=== PATIENT | male | born 1985 | race Native Hawaiian/Other Pacific Islander ===

== ENCOUNTER 2020-04-27 07:38 | Outpatient (REF) | payer OTHER, SELFPAY | END 2020-04-27 07:39 | disposition home or self-care (01) | LOC: HO.LAB 07:38 | PROVIDERS: PCP Internal Medicine; Visit Provider Internal Medicine | DX: Z20.828 Contact with and (suspected) exposure to other viral communicable diseases (principal) | CPT/HCPCS: 36415; 87635 ==

== ENCOUNTER 2020-05-20 07:35 | Emergency (ER) | payer OTHER, SELFPAY ==
--- NOTE | 2020-05-20 07:44 | ED.BACK ---
HPI - Back Pain/Injury General Chief Complaint: Back Pain/Injury Stated Complaint: BACK PAIN Time Seen by Provider: 05/20/20 07:44 Source: patient Mode of arrival: ambulatory Limitations: no limitations History of Present Illness MD elicited complaint: back pain Pertinent past history: prior back pain Onset (ago): day(s) (1) Timing: constant Severity: moderate Similar Symptoms Previously: Yes Quality: sharp Location: lumbar spine Radiation: right upper leg Exacerbating factors: movement, walking, deep breaths and coughing/sneezing Relieving factors: none Context: other (gagged and coughed hard while brushing teeth felt a pop in his back) Associated symptoms: denies other symptoms Work related injury: No Related Data Previous Rx's Medication Instructions Recorded tramadol 50 mg tablet 50 mg PO Q6H PRN 30 Days #120 tab 05/01/20 trazodone 100 mg tablet 100 mg PO BEDTIME PRN 90 Days #90 05/01/20 tab diazepam [Valium] 5 mg PO TID PRN #14 tab 05/20/20 ibuprofen 600 mg PO Q6H PRN #30 tab 05/20/20 lidocaine 1 patch TOPICAL DAILY PRN #10 ea 05/20/20 Allergies Allergy/AdvReac Type Severity Reaction Status Date / Time No Known Allergies Allergy Verified 05/20/20 07:52 Review of Systems Review of Systems: Constitutional : No Weight loss, No Fever, No Chills, ENT/Mouth : No Hearing loss, No Ear Pain, No Nasal Congestion, No Sinus Pain, No Hoarseness, No sore throat, No Rhinorrhea, No Swallowing Difficulty Cardiovascular : No Chest Pain, No SOB Respiratory : No Cough, No Dyspnea Gastrointestinal : No Nausea, No Vomiting, No Diarrhea, No abdominal Pain, No Hematochezia, No Melena Genitourinary : No Dysuria, No Urinary Frequency, No Hematuria, No Urinary Incontinence, Musculoskeletal : positive back pain Skin : No Skin Lesions, No rash Neuro : No Weakness, No Numbness, No Paresthesias, no loss of bowel or bladder incontinence, no saddle anesthesia [facility] Past Medical History Medical History Lumbar spondylosis Primary insomnia Social History Social History (Updated 05/20/20 @ 07:54 by Lary Martines DO) Smoking Status: Current every day smoker Use of substances other than those prescribed or required for medical reasons: No Physical Exam Vital Signs: Vital Signs: Vital Signs Temp Pulse Resp BP Pulse Ox 05/20/20 07:48 98.0 F 77 17 110/65 99 Body Mass Index 29.8 Appearance: Alert. Oriented X3. No acute distress. Eyes: Pupils equal, round and reactive to light. ENT: Pharynx normal. Neck: Normal inspection. Neck supple. CVS: Normal heart rate and rhythm. Pulses normal. Respiratory: No respiratory distress. Breath sounds normal. Abdomen: Soft and nontender. Back: R sided lower lumbar ttp Skin: Skin warm and dry. Normal skin color. Normal skin turgor. Extremities: No lower extremity edema. No calf ttp Neuro: Oriented X 3. No motor deficit. No sensory deficit. MDM - Back Pain/Injury MDM Narrative Medical decision making narrative: 34 yo male with back pain no b/b incontinence, no saddle anesthesia, no IVDA, no AC therapy - hx of same in past will prescirbe NSAIDs, lidocaine patch and valium, DC to PCP Discharge Plan Discharge Clinical Impression: Lumbar radicular pain Patient Disposition: Home, Self-Care Instructions: Acute Low Back Pain (ED) Prescriptions: New diazepam [Valium] 5 mg tablet 5 mg PO TID PRN (Reason: muscle spasm) Qty: 14 RF: 0 lidocaine 4 % adhesive patch,medicated 1 patch topical DAILY PRN (Reason: pain) Qty: 10 RF: 0 ibuprofen 600 mg tablet 600 mg PO Q6H PRN (Reason: pain) Qty: 30 RF: 0 No Action trazodone 100 mg tablet 100 mg PO BEDTIME PRN (Reason: sleep) 90 Days Qty: 90 RF: 3 tramadol 50 mg tablet 50 mg PO Q6H PRN (Reason: pain) 30 Days Qty: 120 RF: 0 Referrals: Caitie Huizar MD [Primary Care Provider] - 2 days Print Language: Ukrainian
[2020-05-20 07:48] VITALS: BP 110/65; PULSE 77; RESP 17; TEMP 36.7; O2SAT 99; BMI 29.8
[2020-05-20] MEDS: Ketorolac Tromethamine 60 MG/2 ML VIAL IM (07:54)
== END 2020-05-20 08:01 | disposition home or self-care (01) ==
LOC: HO.ED 07:55
PROVIDERS: Emergency Provider Emergency Medicine; PCP Internal Medicine
DX: M54.5 Low back pain (principal); Z79.899 Other long term (current) drug therapy
CPT/HCPCS: 96372; 99283; 99284; J1885

== ENCOUNTER 2020-09-04 09:19 | Outpatient (REF) | payer OTHER, SELFPAY | END 2020-09-04 09:20 | disposition home or self-care (01) | LOC: HO.LAB 09:19 | PROVIDERS: Visit Provider Internal Medicine | DX: Z20.822 Contact with and (suspected) exposure to COVID-19 (principal) | CPT/HCPCS: 36415; C9803; U0003; U0005 ==

== ENCOUNTER 2020-09-04 15:00 | Outpatient (RCR) | payer OTHER, SELFPAY ==
--- NOTE | 2020-08-16 15:13 | MHC.PT.EP ---
[facility] [place] Office [place] Office [place] Office [address] Ana Burton [address] [phone] F: [phone] F: [phone] F: [phone] F: [phone] Physical Therapy Plan of Care Date of Evaluation: 08/16/20 Date of Surgery: na Diagnosis: Spondylosis w/o myelopathy or radiculopathy Assessment: YOSHI RETURNS TO PT FOR LBP. UPON EXAM, IMPAIRMENTS INCLUDE DECREASED TRUNK ROM, DECREASED LE STRENGTH AND ROM, ALTERED GAIT AND POSTURE AND INCREASED PAIN. FUNCTIONAL LIMITATIONS INCLUDE DECREASED ABILITY TO MAINTAIN PROLONGED POSITIONS, DECREASED TOLERANCE TO LIFTING AND BENDING, DECREASED ABILITY TO PERFORM HOMEMAKING TASKS, DECREASED ABILITY TO PARTICIPATE IN COMMUNITY ACTIVITIES AND FITNESS. OF NOTE HE HAS BEEN EVALUATED IN THIS CLINIC 4 PREVIOUS TIMES FOR SIMILAR SYMPTOMS WITH POOR ATTENDANCE HISTORY. Frequency and Duration: The patient will be seen 2 X WEEK FOR 4 WEEKS Short Term Goals: INITIATE HEP AND PROMOTE IMPROVED POSTURAL AWARENESS AND SELF MANAGEMENT OF SYMPTOMS. Penitentiary Goals: IN 4 WEEKS FULL LE STRENGTH EQUAL WILDER INDEPENDENT HEP AND SELF MANAGEMENT OF SYMPTOMS TO TOLERATE WALKING AND SITTING, EACH AT MINIMUM 30 MINS, WITHOUT PAIN GREATER THAN 2/10 Treatment Plan: Modalities to reduce pain, spasms and effusion. Manual therapy to restore motion and function. Therapeutic exercise to improve strength and flexibility. Neuromuscular re-education for posture and balance. Therapeutic activities to return to functional activities of daily living. Electronically signed by: STEPHANY HILL PT, DPT Please sign and return to therapist. Thank you for your referral.
--- NOTE | 2020-09-26 11:30 | MHC.PT.DC ---
[facility] [place] Office [place] Office [place] Office [address] Ana Burton [address] [phone] F: [phone] F: [phone] F: [phone] F: [phone] Physical Therapy Discharge Report Diagnosis: Spondylosis w/o myelopathy or radiculopathy Date of Surgery: na Date of Evaluation: 08/16/20 Date of Discharge: 09/12/20 Treatments to Date: 6 Cancellations to Date: 1 No Shows to Date: 2 Discharge Status: Visit Non-compliance Discharge Summary: Ministerio was progressing well with PT although c/o some continuing right sided discomfort and tightness, he then no showed for his last two scheduled visits and did not return our voicemail messages. He is D/Joel per department policy. Electronically signed by: Rere Tejada PT, DPT Please sign and return to therapist. Thank you for your referral.
== END 2021-04-01 08:17 | disposition home or self-care (01) ==
LOC: HO.PT 15:00
PROVIDERS: PCP Internal Medicine; Visit Provider Internal Medicine
DX: M47.816 Spondylosis without myelopathy or radiculopathy, lumbar region (principal)
CPT/HCPCS: 97110; 97140; 97161; 97530

== ENCOUNTER 2020-09-12 07:44 | Outpatient (REF) | payer OTHER, SELFPAY ==
[2020-09-12 08:52] LABS: Glucose Urine UA NEG (NEG); Leukocyte Esterase Urine NEG (NEG); Nitrite Urine NEG (NEG); PH 5.5 (5.0-8.0); Specific Gravity - Urine >= 1.030 (1.005-1.025); Urine Blood TRACE (NEG); Urine Ketones NEG (NEG); Urine Protein NEG (NEG-TRACE)
[2020-09-12 08:53] LABS: Appearance Urine CLEAR; Color Urine YELLOW
[2020-09-12 09:03] LABS: Alanine Aminotransferase 19 U/L (0-40); Albumin Level 4.6 g/dL (3.5-5.0); Alkaline Phosphatase 90 U/L (39-117); Anion Gap 14 (12-20); Aspartate Amino Transferase 21 U/L (5-37); Bilirubin Total 0.4 mg/dL (0.0-1.0); Blood Urea Nitrogen 14 mg/dL (9-16); Calcium 8.8 mg/dL (8.4-10.2); Carbon Dioxide 23 mmol/L (22-29); Chloride 105 mmol/L (96-108); Cholesterol 201 mg/dL; Estimated Glomerular Filt Rate > 60; Glucose Fasting 88 mg/dL (60-99); HDL Cholesterol 46 mg/dL; LDL Cholesterol Calculated 138 mg/dl; Potassium 4.5 mmol/L (3.3-5.1); Sodium 137 mmol/L (135-145); Total Protein 7.4 g/dL (6.5-8.0); Triglycerides 85 mg/dL
[2020-09-12 09:14] LABS: Mucus Urine TRACE /LPF; RBC Urine 0-2 /HPF (0); WBC Urine 0-2 /HPF (0-4)
[2020-09-12 10:31] LABS: HBS Num1 > 1000.00 mIU/mL (0-7.99); HBc Num1 0.07 S/CO (0.00-0.79); Hepatitis B Core Antibody Nonreactive (Nonreactive); ~Hepatitis B Surface Antibody REACTIVE (Nonreactive)
[2020-09-12 10:38] LABS: HBsAGNum1 0.25 S/CO (0.00-0.99); HIV AB/AG Nonreactive (Nonreactive); HIV Num 1 0.07 S/CO (0.00-0.99); Hepatitis B Surface Antigen Negative (Negative); ~HepC Num1 0.06 S/CO (0.00-0.79); ~Hepatitis C Antibody Nonreactive (Nonreactive)
[2020-09-13 09:41] LABS: Syphilis Screen Nonreactive (Nonreactive)
[2020-09-13 14:56] LABS: C. trachomatis RNA TMA NOT DETECTED (NOT DETECTED); N. gonorrhoeae RNA TMA NOT DETECTED (NOT DETECTED)
== END 2020-09-12 07:45 | disposition home or self-care (01) ==
LOC: HO.LAB 07:44
PROVIDERS: Visit Provider Internal Medicine
DX: R35.8 Other polyuria (principal); E78.5 Hyperlipidemia, unspecified; R30.0 Dysuria; Z11.3 Encounter for screening for infections with a predominantly sexual mode of transmission
CPT/HCPCS: 36415; 80053; 80061; 81001; 81003; 86704; 86706; 86780; 86803; 87340; 87389; 87491; 87591

== ENCOUNTER 2020-09-13 07:30 | Emergency (ER) | payer OTHER, SELFPAY ==
--- NOTE | 2020-09-13 07:33 | ED.URI ---
HPI - URI/Sore Throat General Chief Complaint: General Medical Stated Complaint: COUGH Time Seen by Provider: 09/13/20 07:32 Source: patient Mode of arrival: ambulatory Limitations: no limitations History of Present Illness HPI Narrative: 35 yo male cough and sore throat x 3 days able to swallow and tolerate secretions MD elicited complaint: cough and sore throat Pertinent past history: asthma Onset (ago): day(s) (3) Consistency: constant Severity: moderate Description of mucous: clear Able to tolerate fluids by mouth: Yes Exacerbating factors: swallowing Relieving factors: nothing Associated symptoms: rhinorrhea, sore throat and cough Treatments prior to arrival: none Related Data Previous Rx's Medication Instructions Recorded lidocaine 1 patch TOPICAL DAILY PRN #10 ea 05/20/20 trazodone 100 mg tablet 100 mg PO BEDTIME PRN 90 Days #90 06/05/20 tab albuterol sulfate 90 mcg/actuation 1 inh INHALATION QID PRN 30 Days 08/07/20 aerosol inhaler #6.7 g ibuprofen 600 mg tablet 600 mg PO Q6H PRN #30 tab 08/07/20 tramadol 50 mg tablet 50 mg PO Q6H PRN 30 Days #112 tab 08/07/20 fluticasone propionate 50 1 spray INTRANASAL DAILY 30 Days 09/03/20 mcg/actuation nasal #16 g spray,suspension azithromycin See Rx Instructions .ROUTE 09/13/20 .COMPLEX #6 tab Allergies Allergy/AdvReac Type Severity Reaction Status Date / Time No Known Allergies Allergy Verified 09/03/20 15:01 Review of Systems Review of Systems: Constitutional : No Fever, No Chills ENT/Mouth : pos swallowing difficulty, no change in voice, no dental pain, no jaw pain, no facial swelling Eyes: No Eye Pain, No Swelling Cardiovascular : No Chest Pain, No SOB Respiratory : pos Cough, No Sputum Gastrointestinal : No Nausea, No Vomiting, No Diarrhea Genitourinary : No Dysuria Musculoskeletal : No Myalgias Skin : No rash Neuro : No Weakness, No Numbness, No Headache PMFSH Past Medical History Medical History Allergic rhinitis Lumbar spondylosis Polyuria Primary insomnia Screening for STD (sexually transmitted disease) Surgical History No pertinent past surgical history Family History Family History Father No problems noted. Mother Hypertension Brother No problems noted. Maternal Grandmother Hypertension Diabetes Maternal Grandfather CVD (cardiovascular disease) Paternal Grandmother No problems noted. Paternal Grandfather No problems noted. Social History Social History Smoking Status: Current every day smoker Tobacco Type: Cigarette Cigarettes Per Day: 8 Physical Exam Vital Signs: Vital Signs: Last Vital Signs Temp 98.5 F 09/13/20 07:44 Pulse 83 09/13/20 07:44 Resp 16 09/13/20 07:44 BP 116/67 09/13/20 07:44 Pulse Ox 98 09/13/20 07:44 Body Mass Index 30.7 Appearance: Alert. Oriented X3. No acute distress. Eyes: Pupils equal, round and reactive to light. ENT: Pharynx moderate swelling, no mass, uvula midline normal voice tolerating secretions no exudates Neck: Normal inspection. Neck supple. CVS: Normal heart rate and rhythm. Pulses normal. Respiratory: No respiratory distress. Breath sounds normal. Abdomen: Soft and nontender. Skin: Skin warm and dry. Normal skin color. Normal skin turgor. Extremities: No lower extremity edema. No calf ttp Neuro: Oriented X 3. No motor deficit. No sensory deficit. MDM - URI/Sore Throat MDM Narrative Medical decision making narrative: 35 yo male with pharyngitis - no signs of mass or [facility], able to swallow and tolerate secretions - will test for COVID and strep given clinical appearance will start on zpak - will call josiah with results Discharge Plan Discharge Clinical Impression: Acute viral syndrome Pharyngitis Qualifiers: Pharyngitis/tonsillitis etiology: other specified organisms Qualified Code(s): J02.8 - Acute pharyngitis due to other specified organisms Patient Disposition: Home, Self-Care Instructions: Pharyngitis (ED) Additional Instructions: return to ED for any worsening symptoms or concerns WE WILL CALL YOU WITH YOUR RESULTS IF YOU ARE COVID POSITIVE Prescriptions: New azithromycin 500 mg tablet See Rx Instructions .ROUTE .COMPLEX Qty: 6 RF: 0 No Action trazodone 100 mg tablet 100 mg PO BEDTIME PRN (Reason: sleep) 90 Days Qty: 90 RF: 3 albuterol sulfate [ProAir HFA] 90 mcg/actuation HFA aerosol inhaler 1 inh inhalation QID PRN (Reason: bronchospasm) 30 Days Qty: 6.7 RF: 6 ibuprofen 600 mg tablet 600 mg PO Q6H PRN (Reason: pain) Qty: 30 RF: 2 tramadol 50 mg tablet 50 mg PO Q6H PRN (Reason: pain) 30 Days Qty: 112 RF: 0 lidocaine 4 % adhesive patch,medicated 1 patch topical DAILY PRN (Reason: pain) Qty: 10 RF: 0 fluticasone propionate [Allergy Relief (fluticasone)] 50 mcg/actuation spray,suspension 1 spray intranasal DAILY 30 Days Qty: 16 RF: 6
[2020-09-13 07:44] VITALS: BP 116/67; PULSE 83; RESP 16; TEMP 36.9; O2SAT 98; BMI 30.7
[2020-09-13 08:35] LABS: Influenza A PCR NEGATIVE (Negative); Influenza B PCR NEGATIVE (Negative); Resp Syncy Virus RNA Qual PCR NEGATIVE (Negative); SARS COV2 PCR INHOUSE NEGATIVE (Negative)
== END 2020-09-13 07:55 | disposition home or self-care (01) ==
LOC: HO.ED 07:51
PROVIDERS: Emergency Provider Emergency Medicine; PCP Internal Medicine
DX: J02.8 Acute pharyngitis due to other specified organisms (principal); B34.9 Viral infection, unspecified; R05 Cough; F17.210 Nicotine dependence, cigarettes, uncomplicated; Z71.6 Tobacco abuse counseling; Z79.899 Other long term (current) drug therapy; Z20.822 Contact with and (suspected) exposure to COVID-19
CPT/HCPCS: 0241U; 36415; 87071; 87880; 99283

== ENCOUNTER 2020-09-18 03:49 | Emergency (ER) | payer OTHER, SELFPAY ==
[2020-09-18 04:02] VITALS: BP 134/76; PULSE 95; RESP 18; TEMP 36.3; O2SAT 100; BMI 30.9
--- NOTE | 2020-09-18 04:09 | ED.MALEGU ---
HPI - Male Genitourinary General Chief complaint: Urogenital-Male Stated complaint: Testicular pain Time Seen by Provider: 09/18/20 04:09 Source: patient Mode of arrival: ambulatory Limitations: no limitations History of Present Illness HPI Narrative: Patient was seen here on 09/12 for sore throat that time a urine GC chlamydia was negative. Patient treated with Zithromax now comes here for 2 days of pain in the right testicle without significant swelling no penile discharge no trauma no significant increase in pain on standing MD Complaint: testicle pain Related Data Previous Rx's Medication Instructions Recorded lidocaine 1 patch TOPICAL DAILY PRN #10 ea 05/20/20 trazodone 100 mg tablet 100 mg PO BEDTIME PRN 90 Days #90 06/05/20 tab albuterol sulfate 90 mcg/actuation 1 inh INHALATION QID PRN 30 Days 08/07/20 aerosol inhaler #6.7 g ibuprofen 600 mg tablet 600 mg PO Q6H PRN #30 tab 08/07/20 tramadol 50 mg tablet 50 mg PO Q6H PRN 30 Days #112 tab 08/07/20 fluticasone propionate 50 1 spray INTRANASAL DAILY 30 Days 09/03/20 mcg/actuation nasal #16 g spray,suspension azithromycin See Rx Instructions .ROUTE 09/13/20 .COMPLEX #6 tab doxycycline hyclate 100 mg PO BID #20 cap 09/18/20 Allergies Allergy/AdvReac Type Severity Reaction Status Date / Time No Known Allergies Allergy Verified 09/03/20 15:01 Review of Systems Review of Systems: Yes all other systems are reviewed and are negative [facility] Past Medical History Medical History Allergic rhinitis Lumbar spondylosis Polyuria Primary insomnia Screening for STD (sexually transmitted disease) Surgical History No pertinent past surgical history Family History Family History Father No problems noted. Mother Hypertension Brother No problems noted. Maternal Grandmother Hypertension Diabetes Maternal Grandfather CVD (cardiovascular disease) Paternal Grandmother No problems noted. Paternal Grandfather No problems noted. Social History Social History Smoking Status: Current every day smoker Tobacco Type: Cigarette Cigarettes Per Day: 8 Use of substances other than those prescribed or required for medical reasons: Yes Substance Use Type: Marijuana Advance Directives: No Physical Exam Vital Signs: Vital Signs: Last Vital Signs Temp 97.4 F 09/18/20 04:02 Pulse 95 09/18/20 04:02 Resp 18 09/18/20 04:02 BP 134/76 09/18/20 04:02 Pulse Ox 100 09/18/20 04:02 Body Mass Index 30.9 Const: General: no acute distress Resp: Effort & Inspection: normal respiratory effort Auscultation: clear to auscultation bilaterally Cardio: Rate: regular rate Rhythm: regular rhythm Heart sounds: S1 normal heart sound present and S2 normal heart sound present GI: Inspection: Yes normal to inspection Palpation (GI): Soft to palpation and nontender Auscultation: normal bowel sounds : General: Yes no CVA tenderness Male General Exam: Yes normal external exam Penis: normal penis Meatus: meatus normal Scrotum: scrotum normal Testes: no epididymal induration, no epidiymal masses and epididymal tenderness on the right Back/Spine/Pelvis: Back: no CVA tenderness MDM - Male Genitourinary MDM Narrative Medical decision making narrative: Patient with mild right epididymis tenderness without significant swelling DC clearly was negative on 09/12 will give him doxycycline advised took continue to watch report to the ER if gets worse Discharge Plan Discharge Clinical Impression: Epididymitis Patient Disposition: Home, Self-Care Instructions: Epididymitis (ED) Additional Instructions: Take antibiotic as prescribed Your possibly have mild epididymitis Report to the ER/PCP if pain or swelling gets worse Prescriptions: New doxycycline hyclate 100 mg capsule 100 mg PO BID Qty: 20 RF: 0 No Action trazodone 100 mg tablet 100 mg PO BEDTIME PRN (Reason: sleep) 90 Days Qty: 90 RF: 3 albuterol sulfate [ProAir HFA] 90 mcg/actuation HFA aerosol inhaler 1 inh inhalation QID PRN (Reason: bronchospasm) 30 Days Qty: 6.7 RF: 6 ibuprofen 600 mg tablet 600 mg PO Q6H PRN (Reason: pain) Qty: 30 RF: 2 tramadol 50 mg tablet 50 mg PO Q6H PRN (Reason: pain) 30 Days Qty: 112 RF: 0 lidocaine 4 % adhesive patch,medicated 1 patch topical DAILY PRN (Reason: pain) Qty: 10 RF: 0 azithromycin 500 mg tablet See Rx Instructions .ROUTE .COMPLEX Qty: 6 RF: 0 fluticasone propionate [Allergy Relief (fluticasone)] 50 mcg/actuation spray,suspension 1 spray intranasal DAILY 30 Days Qty: 16 RF: 6 Interventions: ED Discharge Assessment Last Done: 09/18/20 04:15 Print Language: Turkish
== END 2020-09-18 04:34 | disposition home or self-care (01) ==
PROVIDERS: Emergency Provider Internal Medicine; PCP Internal Medicine
DX: N45.1 Epididymitis (principal); F17.210 Nicotine dependence, cigarettes, uncomplicated; F12.90 Cannabis use, unspecified, uncomplicated
CPT/HCPCS: 99283; 99284

== ENCOUNTER 2020-09-30 17:15 | Outpatient (REF) | payer OTHER, SELFPAY ==
[2020-10-01 13:08] LABS: Amphetamine Screen Urine Not Detected (Not Detect); Barbiturates, Urine Not Detected (Not Detect); Benzodiazepines Screen Urine Not Detected (Not Detect); Cannabinoid Screen Urine POSITIVE (Not Detect); Cocaine Screen Urine POSITIVE (Not Detect); Opiate Screen Urine Not Detected (Not Detect); Phencyclidine Screen Urine Not Detected (Not Detect)
[2020-10-03 07:17] LABS: Codeine, Ur NEGATIVE ng/mL (<50); Hydrocodone, Ur NEGATIVE ng/mL (<50); Hydromorphone, Ur NEGATIVE ng/mL (<50); Morphine, Ur NEGATIVE ng/mL (<50); Norhydrocodone, Ur NEGATIVE ng/mL (<50); Noroxycodone, Ur NEGATIVE ng/mL (<50); Oxycodone, Ur NEGATIVE ng/mL (<50); Oxymorphone, Ur NEGATIVE ng/mL (<50)
[2020-10-03 17:37] LABS: Desmethyltramadol, Ur 2669 ng/mL (<100); Tramadol, Ur >10000 ng/mL (<100)
== END 2020-09-30 17:16 | disposition home or self-care (01) ==
LOC: HO.LNP 17:15
PROVIDERS: Visit Provider Internal Medicine
DX: M47.816 Spondylosis without myelopathy or radiculopathy, lumbar region (principal); Z51.81 Encounter for therapeutic drug level monitoring; Z11.3 Encounter for screening for infections with a predominantly sexual mode of transmission
CPT/HCPCS: 80307; 80364; 80365; 80373

== ENCOUNTER 2020-10-01 11:59 | Outpatient (REF) | payer OTHER, SELFPAY | END 2020-10-01 12:00 | disposition home or self-care (01) | LOC: HO.LNP 11:59 | PROVIDERS: Visit Provider Internal Medicine | DX: Z13.89 Encounter for screening for other disorder (principal) ==

== ENCOUNTER 2020-10-01 12:03 | Outpatient (REF) | payer OTHER, SELFPAY | END 2020-10-01 12:04 | disposition home or self-care (01) | LOC: HO.LNP 12:03 | PROVIDERS: Visit Provider Internal Medicine | DX: Z13.89 Encounter for screening for other disorder (principal) ==

== ENCOUNTER 2020-10-08 16:54 | Emergency (ER) | payer OTHER, SELFPAY ==
[2020-10-08 16:56] VITALS: BP 125/75; PULSE 95; RESP 18; TEMP 37.1; O2SAT 100; BMI 31.6
[2020-10-08] MEDS: Erythromycin Base 0.5% Oph Oin 1 GM TUBE 1 CM EYE-LEFT (19:09)
--- NOTE | 2020-10-08 19:13 | ED.EYEPROB ---
HPI - Eye Problem General Chief complaint: Eye Problems Stated complaint: eye problem Time Seen by Provider: 10/08/20 18:51 Source: patient Mode of arrival: ambulatory Limitations: no limitations History of Present Illness HPI Narrative: 35 y/o male presenting with non-traumatic left eye pain and redness for the last 2 days. He has pain in the upper eye lid with some swelling. He has been using eye lubricant without any improvement. He also has been icing his eye without improvement. He denies vision changes. He denies foreign body sensation. He does not wear contacts or glasses. chief complaint: eye pain Onset (ago): day(s) (2) Onset description: gradual Duration: constant Location: left eye Eye Symptoms: redness and pain Place: home Mechanism: none Severity: moderate If Pain, Quality: aching Associated symptoms: none Treatments Prior to Arrival: none Related Data Previous Rx's Medication Instructions Recorded lidocaine 1 patch TOPICAL DAILY PRN #10 ea 05/20/20 trazodone 100 mg tablet 100 mg PO BEDTIME PRN 90 Days #90 06/05/20 tab fluticasone propionate 50 1 spray INTRANASAL DAILY 30 Days 09/03/20 mcg/actuation nasal #16 g spray,suspension albuterol sulfate 90 mcg/actuation 1 inh INHALATION QID PRN 30 Days 09/30/20 aerosol inhaler #6.7 g ibuprofen 600 mg tablet 600 mg PO Q6H PRN #30 tab 09/30/20 tramadol 50 mg tablet 50 mg PO Q6H PRN 30 Days #112 tab 09/30/20 erythromycin 0.5 inch OPHTHALMIC (EYE) TID #3.5 10/08/20 g Allergies Allergy/AdvReac Type Severity Reaction Status Date / Time No Known Allergies Allergy Verified 10/08/20 16:56 Review of Systems Review of Systems: Constitutional: No Fever, No Chills ENT/Mouth: No sore throat, No Rhinorrhea, No Swallowing Difficulty Eyes: + Eye Pain, + Swelling, + Redness Cardiovascular: No Chest Pain, No SOB Respiratory: No Cough, No Sputum Skin: No Skin Lesions, No rash Neuro: No Headache PMFSH Past Medical History Attestation statement: The following information was validated with the patient. Medical History Allergic rhinitis Lumbar spondylosis Polyuria Primary insomnia Screening for STD (sexually transmitted disease) Surgical History No pertinent past surgical history Family History Family History Father No problems noted. Mother Hypertension Brother No problems noted. Maternal Grandmother Hypertension Diabetes Maternal Grandfather CVD (cardiovascular disease) Paternal Grandmother No problems noted. Paternal Grandfather No problems noted. Social History Social History (Updated 09/30/20 @ 17:01 by Caitie Saldivar MD) Smoking Status: Current every day smoker Tobacco Type: Cigarette Cigarettes Per Day: 8 Substance Use Type: Marijuana Advance Directives: No Advance Directives Information Provided: Yes Physical Exam Vital Signs: Vital Signs: Last Vital Signs Temp 98.7 F 10/08/20 16:56 Pulse 95 10/08/20 16:56 Resp 18 10/08/20 16:56 BP 125/75 10/08/20 16:56 Pulse Ox 100 10/08/20 16:56 Body Mass Index 31.6 Appearance: Alert. Oriented X3. No acute distress. HEENT: left eye with mild scleral injection superiorly. EOMI, PERRLA, upper lid everted with small pustule noted interiorly. VA noted. no discharge. CVS: Normal heart rate and rhythm. Pulses normal. Respiratory: No respiratory distress. Skin: Skin warm and dry. Normal skin color. Normal skin turgor. No rashes. Extremities: atraumatic, no LE edema Neuro: Oriented X 3. Non-focal. CN II-XII grossly intact. Course Course Course Narrative: 35 yo male presenting with left eye pain, swelling - exam consistent with internal hordeolum. Area was superficially deroofed with a sterile needle. Patient tolerated well. Counseled on management with warm compresses. Topical abx given here and sent to pharmacy. Stable for d/c. Critical Care Time Critical Care Time Critical Care Time: No Discharge Plan Discharge Clinical Impression: Hordeolum Qualifiers: Hordeolum type: internum Laterality: left Eyelid: upper Qualified Code(s): H00.024 - Hordeolum internum left upper eyelid Patient Disposition: Home, Self-Care Instructions: Stye (ED) Additional Instructions: Use warm compresses to your eye several times per day until all of you symptoms are resolved. Use the antibiotic ointment 4 times per day. Follow up with your doctor as needed. If you have worsening symptoms come back to the ER for further evaluation. Prescriptions: New erythromycin 5 mg/gram (0.5 %) ointment 0.5 inch ophthalmic (eye) TID Qty: 3.5 RF: 0 No Action trazodone 100 mg tablet 100 mg PO BEDTIME PRN (Reason: sleep) 90 Days Qty: 90 RF: 3 tramadol 50 mg tablet 50 mg PO Q6H PRN (Reason: pain) 30 Days Qty: 112 RF: 0 albuterol sulfate [ProAir HFA] 90 mcg/actuation HFA aerosol inhaler 1 inh inhalation QID PRN (Reason: bronchospasm) 30 Days Qty: 6.7 RF: 6 ibuprofen 600 mg tablet 600 mg PO Q6H PRN (Reason: pain) Qty: 30 RF: 2 lidocaine 4 % adhesive patch,medicated 1 patch topical DAILY PRN (Reason: pain) Qty: 10 RF: 0 fluticasone propionate [Allergy Relief (fluticasone)] 50 mcg/actuation spray,suspension 1 spray intranasal DAILY 30 Days Qty: 16 RF: 6 Interventions: ED Discharge Assessment Last Done: 10/08/20 19:40 Discharge Date/Time: 10/08/20 19:40
== END 2020-10-08 19:40 | disposition home or self-care (01) ==
PROVIDERS: Emergency Provider Emergency Medicine; PCP Internal Medicine
DX: H00.024 Hordeolum internum left upper eyelid (principal); F17.210 Nicotine dependence, cigarettes, uncomplicated; F12.90 Cannabis use, unspecified, uncomplicated
CPT/HCPCS: 99283; 99284

== ENCOUNTER 2020-10-12 06:02 | Emergency (ER) | payer OTHER, SELFPAY ==
--- NOTE | ~2020-10-12 | CT_ITS ---
EXAMINATION: CT HEAD WITHOUT CONTRAST CLINICAL INFORMATION: Headache. Rule out SAH COMPARISON: August 10, 2016 TECHNIQUE: Contiguous axial imaging was performed from the skull base to vertex without intravenous administration of contrast. This CT examination was performed using dose optimization techniques as appropriate, variously including the following: *Automated exposure control *Adjustment of mA and/or kV according to patient size (this includes techniques or standardized protocols for targeted exams where dose is matched to indication/reason for exam; i.e. extremities or head) *Use of iterative reconstruction technique DLP: 722 mGy-cm FINDINGS: There is no evidence of acute intracranial hemorrhage or territorial infarction. No abnormal mass effect or midline shift is seen. Acosta to white matter differentiation is well preserved. No extra-axial fluid collections are identified. The ventricles are normal in size. There is no abnormal attenuation within the brain parenchyma. The osseous structures and soft tissues are normal. The mastoid air cells and visualized portions of the paranasal sinuses are well aerated. There is some mucosal thickening noted within the right frontal sinus and ethmoid sinuses. No air-fluid levels. CT/CT head/brain wo con IMPRESSION: No acute intracranial pathology.
[2020-10-12 06:20] VITALS: BP 129/75; PULSE 80; RESP 20; TEMP 37.2; O2SAT 100; BMI 31.6
--- NOTE | 2020-10-12 06:57 | ED.HA ---
HPI - Headache General Chief Complaint: Headache Stated Complaint: Headache Time Seen by Provider: 10/12/20 06:56 Source: patient and educational sign language interpreter Mode of arrival: ambulatory Limitations: no limitations History of Present Illness HPI Narrative: [age] year male presented with headache while having sexual intercourse with his , patient stated while he is about to have orgasm and ejaculation started to have a sudden onset of left-sided headache, no nausea, no vomiting, no blurry vision or photophobia or neck stiffness, patient reported improvement of the headache after the ejaculation, patient had another sexual intercourse with his 2 hours later when the symptoms severe care when having intercourse, patient been in the ED headache has improved, still no photophobia, no neck stiffness. Patient declined any family history of subarachnoid hemorrhage or brain tumor, or sudden at young age in the family. Related Data Previous Rx's Medication Instructions Recorded lidocaine 1 patch TOPICAL DAILY PRN #10 ea 05/20/20 trazodone 100 mg tablet 100 mg PO BEDTIME PRN 90 Days #90 06/05/20 tab fluticasone propionate 50 1 spray INTRANASAL DAILY 30 Days 09/03/20 mcg/actuation nasal #16 g spray,suspension albuterol sulfate 90 mcg/actuation 1 inh INHALATION QID PRN 30 Days 09/30/20 aerosol inhaler #6.7 g ibuprofen 600 mg tablet 600 mg PO Q6H PRN #30 tab 09/30/20 tramadol 50 mg tablet 50 mg PO Q6H PRN 30 Days #112 tab 09/30/20 erythromycin 0.5 inch OPHTHALMIC (EYE) TID #3.5 10/08/20 g Allergies Allergy/AdvReac Type Severity Reaction Status Date / Time No Known Allergies Allergy Verified 10/08/20 16:56 Review of Systems Review of Systems: All other systems are reviewed and are negative Constitutional: Reports as per HPI and Reports no additional constitutional complaints Eyes: Reports as per HPI and Reports no additional eye complaints Reports system reviewed and no additional complaints, except as documented Cardiovascular: Reports as per HPI and Reports no additional cardiovascular complaints Respiratory: Reports as per HPI and Reports no additional respiratory complaints Gastrointestinal: Reports as per HPI and Reports no additional gastrointestinal complaints Genitourinary: Reports no additional female genitourinary complaints Musculoskeletal: Reports no additional musculoskeletal complaints Skin/Breast: Reports system reviewed and no additional complaints, except as docu Psychiatric: Reports no additional psychiatric complaints Endocrine: Reports no additional endocrine complaints Hematologic/Lymphatic: Reports no additional hematologic/lymphatic complaints Allergic/Immunologic: Reports no additional allergic/immunologic complaints Reports system reviewed and no additional complaints, except as documented and Reports Abnormal speech present [facility] Past Medical History Medical History Allergic rhinitis Lumbar spondylosis Polyuria Primary insomnia Screening for STD (sexually transmitted disease) Surgical History No pertinent past surgical history Family History Family History Father No problems noted. Mother Hypertension Brother No problems noted. Maternal Grandmother Hypertension Diabetes Maternal Grandfather CVD (cardiovascular disease) Paternal Grandmother No problems noted. Paternal Grandfather No problems noted. Social History Social History Smoking Status: Unknown if ever smoked Tobacco Type: Cigarette Cigarettes Per Day: 8 Substance Use Type: Marijuana Advance Directives: No Advance Directives Information Provided: No Physical Exam Vital Signs: Vital Signs: Last Vital Signs Temp 98.9 F 10/12/20 06:20 Pulse 76 10/12/20 08:41 Resp 16 10/12/20 08:41 BP 129/75 10/12/20 06:20 Pulse Ox 99 10/12/20 08:41 Body Mass Index 31.6 Vital signs have been reviewed as appeared to be correct. Blood pressure normal. Heart rate normal. Respiration rate normal. Temperature normal. Oxygen saturation normal. Appearance: Alert. Oriented X3. No acute distress. Head: Normal external exam. Normocephalic. Atraumatic. No Garcia signs noted. No raccoon eyes noted Eyes: PERRLA. EOMI. Conjunctiva and sclera normal. Eyelids normal. ENT: TM's Normal. Pharynx normal. Uvula midline. Moist mucous membranes. No trismus noted. No drooling noted. No muffled voice noted. Neck: Normal inspection. Neck supple. FROM. No adenopathy. Thyroid Normal. No meningeal signs. No neck mass noted. CVS: Normal heart rate and rhythm. Heart sound normal. No murmurs noted. Pulses normal throughout. Respiratory: No respiratory distress. Painless inspiration. Breath sounds normal. No wheezes/rales/rhonchi noted. Chest nontender. No accessory muscle usage noted or decreased air movement noted. Abdomen: Soft and nontender. Bowel sounds normal in all 4 quadrants. No distention noted. No organomegaly noted. No visible injury noted. Back: No CVA tenderness. Full range of motion noted. Skin: Skin warm and dry. Normal skin color. Normal skin turgor. No rashes/lesions/lacerations noted. Extremities: No lower extremity edema. Extremities exhibit normal range of motion. Extremities nontender. Neuro: Oriented X 3. No motor deficit. No sensory deficit. Reflexes normal. Course Course Course Narrative: Assessment and plan. 35-year-old male came in for evaluation of headache after having multiple sexual intercourse and orgasms, headache is better in its own, patient just require some Tylenol for a mild headache, head CT/neuro exam/history not strongly suggestive for subarachnoid hemorrhage specially there is no neck stiffness, there is no photophobia, there is no other meningeal his signs. MDM - Headache Imaging Data CT scan - head: Radiologist's impression: There is no evidence of acute intracranial hemorrhage or territorial infarction. No abnormal mass effect or midline shift is seen. Acosta to white matter differentiation is well preserved. No extra-axial fluid collections are identified. The ventricles are normal in size. There is no abnormal attenuation within the brain parenchyma. The osseous structures and soft tissues are normal. The mastoid air cells and visualized portions of the paranasal sinuses are well aerated. There is some mucosal thickening noted within the right frontal sinus and ethmoid sinuses. No air-fluid levels. Discharge Plan Discharge Clinical Impression: Headache Qualifiers: Headache type: tension-type Headache chronicity pattern: acute headache Intractability: not intractable Qualified Code(s): G44.209 - Tension-type headache, unspecified, not intractable Patient Disposition: Home, Self-Care Instructions: Acute Headache (ED) Additional Instructions: Avoid strenuous activity for the next 2 days. Prescriptions: No Action trazodone 100 mg tablet 100 mg PO BEDTIME PRN (Reason: sleep) 90 Days Qty: 90 RF: 3 tramadol 50 mg tablet 50 mg PO Q6H PRN (Reason: pain) 30 Days Qty: 112 RF: 0 albuterol sulfate [ProAir HFA] 90 mcg/actuation HFA aerosol inhaler 1 inh inhalation QID PRN (Reason: bronchospasm) 30 Days Qty: 6.7 RF: 6 ibuprofen 600 mg tablet 600 mg PO Q6H PRN (Reason: pain) Qty: 30 RF: 2 erythromycin 5 mg/gram (0.5 %) ointment 0.5 inch ophthalmic (eye) TID Qty: 3.5 RF: 0 lidocaine 4 % adhesive patch,medicated 1 patch topical DAILY PRN (Reason: pain) Qty: 10 RF: 0 fluticasone propionate [Allergy Relief (fluticasone)] 50 mcg/actuation spray,suspension 1 spray intranasal DAILY 30 Days Qty: 16 RF: 6 Referrals: Caitie Huizar MD [Primary Care Provider] - 2 days
[2020-10-12] MEDS: Acetaminophen 325 MG TABLET 650 MG PO (08:40)
[2020-10-12 08:41] VITALS: PULSE 76; RESP 16; O2SAT 99
== END 2020-10-12 09:01 | disposition home or self-care (01) ==
PROVIDERS: Emergency Provider Emergency Medicine; PCP Internal Medicine
DX: G44.209 Tension-type headache, unspecified, not intractable (principal); F17.210 Nicotine dependence, cigarettes, uncomplicated; F12.90 Cannabis use, unspecified, uncomplicated
CPT/HCPCS: 70450; 99284

== ENCOUNTER 2021-01-22 12:11 | Emergency (ER) | payer OTHER, SELFPAY ==
[2021-01-22 12:36] VITALS: BP 115/62; PULSE 85; RESP 16; TEMP 37.2; O2SAT 97; BMI 30.7
[2021-01-22 13:10] LABS: Appearance Urine CLEAR; Color Urine YELLOW; Glucose Urine UA NEG (NEG); Leukocyte Esterase Urine NEG (NEG); Nitrite Urine NEG (NEG); Specific Gravity - Urine >= 1.030 (1.005-1.025); Urine Blood NEG (NEG); Urine Ketones NEG (NEG); Urine Protein NEG (NEG-TRACE)
[2021-01-22] MEDS: cefTRIAXone sodium 500 MG, Lidocaine HCl 1 % MPF 1 ML IM (13:42)
--- NOTE | 2021-01-22 14:19 | ED_ITS ---
HPI - Male Genitourinary General Chief complaint: Urogenital-Male Stated complaint: ?std Time Seen by Provider: 01/22/21 12:58 Source: patient Mode of arrival: ambulatory History of Present Illness HPI Narrative: 35-year-old male with past medical history allergic rhinitis, insomnia, presenting to the ED complaining gonorrhea exposure from girlfriend. Admits to some red bumps noted to genital is a few days ago, not at present and dysuria. denies fever, chills, abdominal pain, nausea /vomiting, penile discharge, hematuria, flank pain, scrotal pain /swelling Related Data Previous Rx's Medication Instructions Recorded lidocaine 1 patch TOPICAL DAILY PRN #10 ea 05/20/20 trazodone 100 mg tablet 100 mg PO BEDTIME PRN 90 Days #90 06/05/20 tab fluticasone propionate 50 1 spray INTRANASAL DAILY 30 Days 09/03/20 mcg/actuation nasal #16 g spray,suspension albuterol sulfate 90 mcg/actuation 1 inh INHALATION QID PRN 30 Days 09/30/20 aerosol inhaler #6.7 g ibuprofen 600 mg tablet 600 mg PO Q6H PRN #30 tab 09/30/20 tramadol 50 mg tablet 50 mg PO Q6H PRN 30 Days #112 tab 09/30/20 erythromycin 0.5 inch OPHTHALMIC (EYE) TID #3.5 10/08/20 g doxycycline hyclate 100 mg PO BID 7 Days #14 tab 01/22/21 Allergies Allergy/AdvReac Type Severity Reaction Status Date / Time No Known Allergies Allergy Verified 10/08/20 16:56 Review of Systems Review of Systems: Constitutional: No Fever, No Chills Gastrointestinal: No Nausea, No Vomiting, No Abdominal pain Genitourinary: +Dysuria, No Hematuria, No Flank Pain, +genital bumps Musculoskeletal: No joint pain Skin: No Skin Lesions, No rash Neuro: No Weakness Yes all other systems are reviewed and are negative [facility] Past Medical History Attestation statement: The following information was validated with the patient. Medical History Allergic rhinitis Lumbar spondylosis Polyuria Primary insomnia Screening for STD (sexually transmitted disease) Surgical History No pertinent past surgical history Family History Family History Father No problems noted. Mother Hypertension Brother No problems noted. Maternal Grandmother Hypertension Diabetes Maternal Grandfather CVD (cardiovascular disease) Paternal Grandmother No problems noted. Paternal Grandfather No problems noted. Social History Social History Cigarettes Per Day: 8 Substance Use Type: Marijuana Advance Directives: Yes Advance Directives Information Provided: Yes Advance Directives on File: No Physical Exam Vital Signs: Vital Signs: Last Vital Signs Temp 99.0 F 01/22/21 12:36 Pulse 85 01/22/21 12:36 Resp 16 01/22/21 12:36 BP 115/62 01/22/21 12:36 Pulse Ox 97 01/22/21 12:36 Body Mass Index 30.7 Const: General: cooperative and healthy appearing Orientation/consciousness: patient oriented x3 Limitations: no limitations HENMT: Head: Yes normal to inspection Ears: hearing grossly normal bilaterally General nose exam: Normal external nose present Face and sinus: Yes normal facial exam Eyes: General: appearance normal, both eyes and all related structures EOM: EOMs intact bilaterally Neck: Neck: Yes normal visual inspection Resp: Effort & Inspection: normal respiratory effort Cardio: Rate: regular rate GI: Inspection: Yes normal to inspection Palpation (GI): Soft to palpation, nontender, no guarding and not rigid : General: Yes no CVA tenderness Male General Exam: No Genital lesions present Penis: normal penis, no papules, no pustules, no swelling and No Genital lesions present Meatus: meatus normal and No Blood at meatus present Scrotum: scrotum normal Testes: Testes normal Back/Spine/Pelvis: Back: no CVA tenderness Skin: Rashes: no rashes Wounds: no wounds Neuro: General: patient oriented x3 Gait exam (Neuro): Normal gait present Extrem: General: Yes normal to inspection MDM - Male Genitourinary MDM Narrative Medical decision making narrative: 35-year-old male with past medical history allergic rhinitis, insomnia, presenting to the ED complaining gonorrhea exposure from girlfriend. on exam VS, NAD/ well-appearing, physical exam as well. No appreciable palm/lesions or discharge on exam. Patient will be tested and treated for GC / chlamydia. Given IM Ceftriaxone and p.o. Doxycycline Lab Data Labs: Lab Results 01/22/21 Range/Units 12:59 Urine Color YELLOW Urine Appearance CLEAR Urine pH 6.0 (5.0-8.0) Ur Specific [place] >= 1.030 H (1.005-1.025) Urine Protein NEG (NEG-TRACE) MG/DL Urine Glucose (UA) NEG (NEG) MG/DL Urine Ketones NEG (NEG) MG/DL Urine Blood NEG (NEG) Urine Nitrite NEG (NEG) Ur Leukocyte Esterase NEG (NEG) Discharge Plan Discharge Clinical Impression: STI (sexually transmitted infection) Patient Disposition: Home, Self-Care Instructions: Sexually Transmitted Diseases (ED) Additional Instructions: you were tested and treated for gonorrhea and chlamydia today in the ED. You will be contacted with positive results in the next 48 hours. You should refrain from any sexual contact until you know the results of her cultures, and for 2 weeks after treatment is completed. Consider getting retested in the next 2-3 weeks to make sure your treatment has worked. doxycycline as an antibiotic, take as prescribed. please go to [facility] for further sexually transmitted infection testing. please inform her partner so they can get tested and treated as well. If her symptoms persist or worsen you fever or chills, abdominal pain, nausea vomiting please return to the ED le hicieron pruebas y le trataron para gonorrea y clamidia hoy en el servicio de urgencias. Ser? contactado con resultados positivos en las pr?ximas 48 horas. Debe abstenerse de cualquier contacto sexual hasta que conozca los resultados de cass cultivos y rebeca 2 semanas despu?s de completar el tratamiento. Considere volver a hacerse la prueba en las pr?ximas 2-3 semanas para asegurarse de que navarro tratamiento haya funcionado. doxiciclina alejandra antibi?john, t?cope seg?n lo prescrito. por favor vaya a [facility] para m?s pruebas de infecciones de transmisi?n sexual. por favor informe a navarro [place] para que tambi?n puedan hacerse la prueba y recibir tratamiento. Si cass s?ntomas persisten o empeoran fiebre o escalofr?os, dolor abdominal, n?useas, v?mitos, regrese al servicio de urgencias. Prescriptions: New doxycycline hyclate 100 mg tablet 100 mg PO BID 7 Days Qty: 14 RF: 0 No Action trazodone 100 mg tablet 100 mg PO BEDTIME PRN (Reason: sleep) 90 Days Qty: 90 RF: 3 tramadol 50 mg tablet 50 mg PO Q6H PRN (Reason: pain) 30 Days Qty: 112 RF: 0 albuterol sulfate [ProAir HFA] 90 mcg/actuation HFA aerosol inhaler 1 inh inhalation QID PRN (Reason: bronchospasm) 30 Days Qty: 6.7 RF: 6 ibuprofen 600 mg tablet 600 mg PO Q6H PRN (Reason: pain) Qty: 30 RF: 2 erythromycin 5 mg/gram (0.5 %) ointment 0.5 inch ophthalmic (eye) TID Qty: 3.5 RF: 0 lidocaine 4 % adhesive patch,medicated 1 patch topical DAILY PRN (Reason: pain) Qty: 10 RF: 0 fluticasone propionate [Allergy Relief (fluticasone)] 50 mcg/actuation spray,suspension 1 spray intranasal DAILY 30 Days Qty: 16 RF: 6 Referrals: Caitie Huizar MD [Primary Care Provider] - 2 days
[2021-01-22 15:25] LABS: CT PCR NOT DETECTED (Not Detect.); NG PCR NOT DETECTED (Not Detect.)
== END 2021-01-22 14:31 | disposition home or self-care (01) ==
PROVIDERS: Physician Assistant; Emergency Provider Emergency Medicine; PCP Internal Medicine
DX: Z11.3 Encounter for screening for infections with a predominantly sexual mode of transmission (principal); F17.210 Nicotine dependence, cigarettes, uncomplicated; F12.90 Cannabis use, unspecified, uncomplicated
CPT/HCPCS: 81003; 87491; 87591; 96372; 99283; 99284; J0696

== ENCOUNTER 2021-02-05 01:38 | Emergency (ER) | payer OTHER, SELFPAY ==
--- NOTE | ~2021-02-05 | XR_ITS ---
EXAMINATION: XR CHEST CLINICAL INFORMATION: Cough COMPARISON: 01/07/2016 TECHNIQUE: 2 views of the chest were obtained. FINDINGS: The lungs are clear with no focal consolidation. No evidence of pneumothorax, pulmonary edema, or pleural effusions. The cardiomediastinal silhouette is unremarkable. No acute osseous findings. XR/XR chest 2V IMPRESSION: No acute cardiopulmonary findings.
[2021-02-05 02:04] VITALS: BP 127/78; PULSE 81; RESP 14; TEMP 36.9; O2SAT 98; BMI 30.7
[2021-02-05 03:11] LABS: IDNOW Serial# 9DD0AD1C; Strep A Nucleic Acid Negative (Negative)
[2021-02-05 03:14] LABS: COVID-19 Test Negative (Negative)
--- NOTE | 2021-02-05 04:06 | ED_ITS ---
HPI - URI/Sore Throat General Chief Complaint: Upper Respiratory Symptoms Stated Complaint: fever, congestion Time Seen by Provider: 02/05/21 04:02 Source: patient Mode of arrival: ambulatory Limitations: no limitations History of Present Illness HPI Narrative: pt comes to the ED c/o feeling feverish, body aches, tired, increased coughing. Pt states he was nauseous prior to arrival, no abdominal pain, no diarrhea. Patient denies ear pain, no sore throat Related Data Previous Rx's Medication Instructions Recorded lidocaine 1 patch TOPICAL DAILY PRN #10 ea 05/20/20 trazodone 100 mg tablet 100 mg PO BEDTIME PRN 90 Days #90 06/05/20 tab fluticasone propionate 50 1 spray INTRANASAL DAILY 30 Days 09/03/20 mcg/actuation nasal #16 g spray,suspension albuterol sulfate 90 mcg/actuation 1 inh INHALATION QID PRN 30 Days 09/30/20 aerosol inhaler #6.7 g ibuprofen 600 mg tablet 600 mg PO Q6H PRN #30 tab 09/30/20 tramadol 50 mg tablet 50 mg PO Q6H PRN 30 Days #112 tab 09/30/20 erythromycin 0.5 inch OPHTHALMIC (EYE) TID #3.5 10/08/20 g doxycycline hyclate 100 mg PO BID 7 Days #14 tab 01/22/21 ondansetron HCl [Zofran] 4 mg PO Q6H PRN #7 tab 02/05/21 Allergies Allergy/AdvReac Type Severity Reaction Status Date / Time No Known Allergies Allergy Verified 10/08/20 16:56 Review of Systems Review of Systems: Constitutional : No Weight loss, complaining of subjective fever, No Chills, No Night Sweats complaining of fatigue and generalized malaise ENT/Mouth : No Hearing loss, No Ear Pain, No Nasal Congestion, No Sinus Pain, No Hoarseness, No sore throat, No Rhinorrhea, No Swallowing Difficulty Eyes: No Eye Pain, No Swelling, No Redness, No Foreign Body, No Discharge, No Vision Changes Cardiovascular : No Chest Pain, No SOB, No Dyspnea on Exertion, No Orthopnea, No Edema, No Palpitations Respiratory : Complaining of increased , Cough, No Sputum, No Wheezing, No Smoke Exposure, No Dyspnea Gastrointestinal : No Nausea, No Vomiting, No Diarrhea, No Constipation, No abdominal Pain, No Hematochezia, No Melena Genitourinary : no irregular bleeding, No Dysuria, No Urinary Frequency, No Hematuria, No Urinary Incontinence, No Urgency, No Flank Pain, No Urinary Flow Changes, No Hesitancy Musculoskeletal : No joint pain, No Myalgias, No Joint Swelling Skin : No Skin Lesions, No rash Neuro : No Weakness, No Numbness, No Paresthesias, No Loss of Consciousness, No Dizziness, No Headache Psych : No Anxiety/Panic, No Depression, No SI/HI/AH/VH, No Social Issues, Heme/Lymph: No Bruising, No Bleeding,No Lymphadenopathy Endocrine : No Polyuria, No Polydipsia, No Temperature Intolerance [facility] Past Medical History Medical History Allergic rhinitis Lumbar spondylosis Polyuria Primary insomnia Screening for STD (sexually transmitted disease) Surgical History No pertinent past surgical history Family History Family History Father No problems noted. Mother Hypertension Brother No problems noted. Maternal Grandmother Hypertension Diabetes Maternal Grandfather CVD (cardiovascular disease) Paternal Grandmother No problems noted. Paternal Grandfather No problems noted. Social History Social History Cigarettes Per Day: 8 Substance Use Type: Marijuana Advance Directives: No Physical Exam Vital Signs: Vital Signs: Last Vital Signs Temp 98.4 F 02/05/21 02:04 Pulse 81 02/05/21 02:04 Resp 14 02/05/21 02:04 BP 127/78 02/05/21 02:04 Pulse Ox 98 02/05/21 02:04 Body Mass Index 30.7 Appearance: Alert. Oriented X3. No acute distress. Eyes: Pupils equal, round and reactive to light. ENT: Pharynx normal. Neck: Normal inspection. Neck supple. No lymph nodes noted. No crepitus CVS: Normal heart rate and rhythm. Pulses normal. Normal S1 and S2 Respiratory: No respiratory distress. Breath sounds normal. No Wheezing. No rales Abdomen: Soft and nontender. No rigidity. No distention. good BS x4 Skin: Skin warm and dry. Normal skin color. Normal skin turgor. Extremities: No lower extremity edema. No lower extremity edema. No Lacerations. No Rash Neuro: Oriented X 3. No motor deficit. No sensory deficit. Moving all extermities. No slurred speech. Course Course Course Narrative: I discussed with the patient he likely has a viral syndrome. Patient's chest x-ray within normal limits, COVID negative MDM - URI/Sore Throat Lab Data Labs: Lab Results 02/05/21 02/05/21 Range/Units 02:46 02:46 COVID-19 (DELFINO) Negative (Negative) COVID-19 Clin Com See Note S. pyogenes GrpA WINTER Negative (Negative) Imaging Data Chest x-ray: Radiologist's impression: The lungs are clear with no focal consolidation. No evidence of pneumothorax, pulmonary edema, or pleural effusions. The cardiomediastinal silhouette is unremarkable. No acute osseous findings. XR/XR chest 2V IMPRESSION: No acute cardiopulmonary findings Discharge Plan Discharge Clinical Impression: Viral syndrome, Nausea Patient Disposition: Home, Self-Care Instructions: Viral Syndrome (ED) Additional Instructions: Please follow-up with your primary care physician tomorrow. If you have any worsening or new symptoms, please return to the emergency room or call 911 Prescriptions: New ondansetron HCl [Zofran] 4 mg tablet 4 mg PO Q6H PRN (Reason: nausea and vomiting) Qty: 7 RF: 0 No Action trazodone 100 mg tablet 100 mg PO BEDTIME PRN (Reason: sleep) 90 Days Qty: 90 RF: 3 tramadol 50 mg tablet 50 mg PO Q6H PRN (Reason: pain) 30 Days Qty: 112 RF: 0 albuterol sulfate [ProAir HFA] 90 mcg/actuation HFA aerosol inhaler 1 inh inhalation QID PRN (Reason: bronchospasm) 30 Days Qty: 6.7 RF: 6 ibuprofen 600 mg tablet 600 mg PO Q6H PRN (Reason: pain) Qty: 30 RF: 2 erythromycin 5 mg/gram (0.5 %) ointment 0.5 inch ophthalmic (eye) TID Qty: 3.5 RF: 0 doxycycline hyclate 100 mg tablet 100 mg PO BID 7 Days Qty: 14 RF: 0 lidocaine 4 % adhesive patch,medicated 1 patch topical DAILY PRN (Reason: pain) Qty: 10 RF: 0 fluticasone propionate [Allergy Relief (fluticasone)] 50 mcg/actuation spray,suspension 1 spray intranasal DAILY 30 Days Qty: 16 RF: 6
== END 2021-02-05 04:31 | disposition home or self-care (01) ==
PROVIDERS: Emergency Provider Emergency Medicine
DX: B34.9 Viral infection, unspecified (principal); R50.9 Fever, unspecified; M79.10 Myalgia, unspecified site; R05 Cough; F12.90 Cannabis use, unspecified, uncomplicated; Z20.822 Contact with and (suspected) exposure to COVID-19; Z79.899 Other long term (current) drug therapy
CPT/HCPCS: 36415; 71046; 87635; 87651; 99283

== ENCOUNTER → 2021-06-12 07:07 | Outpatient (REF) | payer OTHER, SELFPAY ==
[2021-06-12 07:20] LABS: MANUAL DIFF FLAG NO
--- NOTE | 2021-06-12 07:28 | ECG_ITS ---
Test Reason : cp Blood Pressure : / mmHG Vent. Rate : 057 BPM Atrial Rate : 057 BPM P-R Int : 140 ms QRS Dur : 084 ms QT Int : 392 ms P-R-T Axes : -24 067 004 degrees QTc Int : 381 ms Sinus bradycardia RSR' or QR pattern in V1 suggests right ventricular conduction delay Borderline ECG Heart rate has decreased Referred By: Caitie Saldivar Electronically Signed By:NOEL MCQUEEN MD
[2021-06-12 07:46] LABS: Basophils Absolute Auto 0.1 X10*3/uL (0.0-0.2); Basophils Percent Auto 0.6 % (0-2); Eosinophils Absolute Auto 0.6 X10*3/uL (0.0-0.4); Eosinophils Percent Auto 7.6 % (0-4); Hematocrit 39.6 % (42.0-52.0); Imm Gran Abs Auto 0.02 X10*3/uL (0.00-0.03); Imm Gran Pct Auto 0.3 % (0.0-0.4); Lymphocytes Absolute Auto 2.7 X10*3/uL (1.2-4.9); Lymphocytes Percent Auto 33.5 % (20-40); Mean Corpuscular HGB Conc 32.8 g/dl (31.0-36.0); Mean Corpuscular Hemoglobin 29.3 pg (27.0-33.0); Mean Corpuscular Volume 89.2 fL (80.0-98.0); Mean Platelet Volume 9.2 fL (9.4-12.4); Monocytes Absolute Auto 0.5 X10*3/uL (0.1-1.2); Monocytes Percent Auto 6.3 % (2-11); Neutrophils Absolute Auto 4.1 x10*3/uL (2.0-8.3); Neutrophils Percent Auto 51.7 % (45-73); Platelet Count 274 X10*3/uL (160-400); Red Blood Count 4.44 X10*6/uL (4.60-5.80); Red Cell Distribution Width 12.9 % (11.0-16.0); White Blood Count 7.9 X10*3/uL (4.8-10.8)
[2021-06-12 07:50] LABS: Appearance Urine CLEAR; Color Urine YELLOW; Glucose Urine UA NEG (NEG); Leukocyte Esterase Urine NEG (NEG); Nitrite Urine NEG (NEG); Specific Gravity - Urine >= 1.030 (1.005-1.025); Urine Blood NEG (NEG); Urine Ketones NEG (NEG); Urine Protein TRACE MG/DL (NEG-TRACE)
[2021-06-12 08:06] LABS: Amphetamine Screen Urine Not Detected (Not Detect); Barbiturates, Urine Not Detected (Not Detect); Benzodiazepines Screen Urine Not Detected (Not Detect); Cannabinoid Screen Urine POSITIVE (Not Detect); Cocaine Screen Urine POSITIVE (Not Detect); Fentanyl, urine Not Detected (Not Detect); Opiate Screen Urine Not Detected (Not Detect); Phencyclidine Screen Urine Not Detected (Not Detect)
[2021-06-12 08:14] LABS: Alanine Aminotransferase 19 U/L (0-40); Albumin Level 4.4 g/dL (3.5-5.0); Alkaline Phosphatase 89 U/L (39-117); Anion Gap 13 (12-20); Aspartate Amino Transferase 19 U/L (5-37); Bilirubin Total 0.3 mg/dL (0.0-1.0); Blood Urea Nitrogen 15 mg/dL (9-16); Calcium 9.3 mg/dL (8.4-10.2); Carbon Dioxide 23 mmol/L (22-29); Chloride 107 mmol/L (96-108); Estimated Glomerular Filt Rate > 60; Glucose Random 91 mg/dL (60-115); Potassium 4.5 mmol/L (3.3-5.1); Sodium 138 mmol/L (135-145); Total Protein 7.3 g/dL (6.5-8.0)
[2021-06-12 10:44] LABS: CT PCR NOT DETECTED (Not Detect.)
[2021-06-12 10:45] LABS: NG PCR NOT DETECTED (Not Detect.)
[2021-06-13 08:27] LABS: Syphilis Screen Nonreactive (Nonreactive)
[2021-06-13 08:58] LABS: HBsAGNum1 0.14 S/CO (0.00-0.99); Hepatitis B Surface Antigen Negative (Negative); ~HepC Num1 0.05 S/CO (0.00-0.79); ~Hepatitis C Antibody Nonreactive (Nonreactive)
[2021-06-13 09:42] LABS: HBS Num1 > 1000.00 mIU/mL (0-7.99); HBc Num1 0.05 S/CO (0.00-0.79); HIV AB/AG Nonreactive (Nonreactive); HIV Num 1 0.08 S/CO (0.00-0.99); Hepatitis B Core Antibody Nonreactive (Nonreactive); ~Hepatitis B Surface Antibody REACTIVE (Nonreactive)
== END ==
LOC: HO.CARD 07:07
PROVIDERS: PCP Internal Medicine; Visit Provider Internal Medicine
DX: R30.0 Dysuria (principal); R07.9 Chest pain, unspecified; M47.816 Spondylosis without myelopathy or radiculopathy, lumbar region; D64.9 Anemia, unspecified; Z11.3 Encounter for screening for infections with a predominantly sexual mode of transmission
CPT/HCPCS: 80053; 80307; 80364; 80365; 80373; 81003; 85025; 86704; 86706; 86780; 86803; 87340; 87389; 87491; 87591; 93005

== ENCOUNTER 2021-06-13 02:17 | Emergency (ER) | payer OTHER, SELFPAY ==
[2021-06-13 03:45] VITALS: BP 122/76; PULSE 78; RESP 16; TEMP 36.5; O2SAT 99; BMI 30.2
--- NOTE | 2021-06-13 03:53 | PC.NURSE ---
after triage patient walking from the waiting room no distress. unsure if patient is coming back into department.
--- NOTE | 2021-06-13 05:13 | PC.NURSE ---
PT WALKING TO NURSES STATION ASKING ABOUT SEEING HIS DOCTOR. ASKED PT TO GO BACK TO BED AND THE DOCTOR WILL BE OVER TO SEE HIM.
--- NOTE | 2021-06-13 05:42 | PC.NURSE ---
patient not in bed at this time, has not been seen by provider, ?if left department
== END 2021-06-13 06:00 | disposition left against medical advice (07) ==
PROVIDERS: Emergency Provider Emergency Medicine; PCP Internal Medicine
DX: M79.674 Pain in right toe(s) (principal)
CPT/HCPCS: 99281; 99282

== ENCOUNTER 2021-06-15 06:00 | Emergency (ER) | payer OTHER, SELFPAY ==
[2021-06-15 06:09] VITALS: BP 121/61; PULSE 75; RESP 16; TEMP 36.9; O2SAT 97; BMI 29.9
[2021-06-15 08:23] VITALS: BP 125/62; PULSE 62; RESP 18; TEMP 36.1; O2SAT 100
--- NOTE | 2021-06-15 09:02 | ED_ITS ---
HPI - Skin/Abscess/Foreign Bdy General Chief complaint: Skin/Abscess/Foreign Body Stated complaint: Toe pain Time Seen by Provider: 06/15/21 06:53 Source: patient Mode of arrival: ambulatory Limitations: no limitations History of Present Illness HPI narrative: 35-year-old male who presents emergency department for evaluation of infection of his left middle finger. Patient states that he noticed swelling of his left middle finger for the past 2 days, the swelling is gotten worse. He states that it is red and painful. He denies any injury. He denied fever, chills, fatigue, nausea or vomiting. He states he did have an abscess on his right 3rd toe 3 days prior which drained spontaneously. Related Data Home Medications Medication Instructions Recorded Confirmed doxepin 75 mg capsule 75 mg PO BEDTIME 06/09/21 06/09/21 Previous Rx's Medication Instructions Recorded fluticasone propionate 50 1 spray INTRANASAL DAILY 30 Days 09/03/20 mcg/actuation nasal #16 g spray,suspension (Allergy Relief (fluticasone)) albuterol sulfate 90 mcg/actuation 1 inh INHALATION QID PRN 30 Days 09/30/20 aerosol inhaler (ProAir HFA) #6.7 g ibuprofen 600 mg tablet 600 mg PO Q6H PRN #30 tab 02/10/21 cephalexin 500 mg tablet 500 mg PO BID 7 Days #14 tab 06/13/21 cephalexin 500 mg capsule 500 mg PO QID 7 Days #28 cap 06/15/21 Allergies Allergy/AdvReac Type Severity Reaction Status Date / Time No Known Allergies Allergy Verified 06/09/21 14:19 Review of Systems Review of Systems: Yes all other systems are reviewed and are negative [facility] Past Medical History Medical History Allergic rhinitis Chest wall pain Cocaine use Lumbar spondylosis Mild persistent asthma Polyuria Primary insomnia Screening for STD (sexually transmitted disease) Surgical History No pertinent past surgical history Family History Family History Father No problems noted. Mother Hypertension Brother No problems noted. Maternal Grandmother Hypertension Diabetes Maternal Grandfather CVD (cardiovascular disease) Paternal Grandmother No problems noted. Paternal Grandfather No problems noted. Social History Social History Housing: Apartment Patient Tobacco Use Status: Current everyday Tobacco user Tobacco use type: Cigarette Cigarettes Per Day: 2 e-Cigarette/Vaping Use: Never Used Second Hand Smoke Exposure: No Use of substances other than those prescribed or required for medical reasons: No Substance Use Type: Marijuana Advance Directives: No service: No Current occupational status: unemployed Physical Exam Vital Signs: Vital Signs: Last Vital Signs Temp 96.9 F 06/15/21 08:23 Pulse 62 06/15/21 08:23 Resp 18 06/15/21 08:23 BP 125/62 06/15/21 08:23 Pulse Ox 100 06/15/21 08:23 Body Mass Index 29.9 Const: General: cooperative Orientation/consciousness: oriented to person and oriented to place Limitations: no limitations Chest: Chest palpation & inspection: normal inspection of the chest Resp: Effort & Inspection: normal respiratory effort Skin: Other: 1.5 cm circular lesion to the ventral aspect of the 3rd phalanx, there is surrounding erythema with increased warmth, the lesion is flocculence. He has full range of his Neuro: General: oriented to person and oriented to place Course Course Course Narrative: 35-year-old male who presents emergency department for evaluation of patient to his left middle finger over the ventral aspect of the middle phalanx. On physical examination was concerned the patient had a abscess with surrounding cellulitis. I did perform a digital block on the patient and incised the lesion however the lesion was indurated and there was no purulent material. The incision was packed with quarter-inch gauze and dressed with a sterile nonstick gauze dressing. Patient was started on Keflex 500 mg 4 times a day for 7 days. Was given verbal and printed instructions and discharged home. Discharge Plan Discharge Clinical Impression: Cellulitis of finger Qualifiers: Laterality: left Qualified Code(s): L03.012 - Cellulitis of left finger Patient Disposition: Home, Self-Care Instructions: Cellulitis (ED) Additional Instructions: I did not get any pus/purulent material out of the incision to your finger. Your bump is consistent with a skin infection/cellulitis. Take Keflex 500 mg, 1 pill 4 times a day for 7 days. Take ibuprofen 200 mg pills, 3 pills every 6 hours as needed for pain. Take Tylenol (acetaminophen) 500 mg pills, 2 pills every 4 to 6 hours as needed for pain. Apply heat to the finger 4 times a day to help increase the blood flow to air and help the healing process. Follow-up with your doctor in 2 days. Please return to the emergency department if your symptoms get worse or if you develop any symptoms that are concerning to you. Prescriptions: New cephalexin 500 mg capsule 500 mg PO QID 7 Days Qty: 28 RF: 0 No Action albuterol sulfate [ProAir HFA] 90 mcg/actuation HFA aerosol inhaler 1 inh inhalation QID PRN (Reason: bronchospasm) 30 Days Qty: 6.7 RF: 6 ibuprofen 600 mg tablet 600 mg PO Q6H PRN (Reason: for pain) Qty: 30 RF: 6 cephalexin 500 mg tablet 500 mg PO BID 7 Days Qty: 14 RF: 0 fluticasone propionate [Allergy Relief (fluticasone)] 50 mcg/actuation spray,suspension 1 spray intranasal DAILY 30 Days Qty: 16 RF: 6 doxepin 75 mg capsule 75 mg PO BEDTIME RF: 0
[2021-06-15] MEDS: Lidocaine HCl 1 % MPF 5 ML VIAL INFILTRATI ×2 (09:19)
[2021-06-15 09:27] LABS: Glucose, Whole Blood 82 mg/dL (60-115)
== END 2021-06-15 09:25 | disposition home or self-care (01) ==
PROVIDERS: Emergency Provider Emergency Medicine Emergency Medical Services; PCP Internal Medicine
DX: L03.032 Cellulitis of left toe (principal); L03.012 Cellulitis of left finger; Z79.899 Other long term (current) drug therapy; F17.210 Nicotine dependence, cigarettes, uncomplicated; Z71.6 Tobacco abuse counseling
CPT/HCPCS: 82947; 87071; 87205; 99284

== ENCOUNTER 2021-08-01 09:37 | Outpatient (REF) | payer OTHER, SELFPAY ==
[2021-08-01 10:46] LABS: Binax Internal Control QC Valid; Binax Now Covid-19 Ag Negative (Negative)
== END 2021-08-01 09:38 | disposition home or self-care (01) ==
LOC: HO.LAB 09:37
PROVIDERS: PCP Internal Medicine; Visit Provider Internal Medicine
DX: Z20.822 Contact with and (suspected) exposure to COVID-19 (principal)
CPT/HCPCS: 36415; C9803

== ENCOUNTER 2021-09-16 22:32 | Emergency (ER) | payer OTHER, SELFPAY ==
--- NOTE | 2021-09-16 22:46 | PC.NURSE ---
This RN calling pt as a room was available. Pt states Can I smoke first? This RN advising pt that the facility is smoke free. Pt insistent that he must smoke before going into a room. Pt exiting Triage to smoke aware of the fact that he is passing up an available room.
[2021-09-16 22:47] VITALS: BP 138/70; PULSE 70; RESP 18; TEMP 36.6; O2SAT 99; BMI 30.7
[2021-09-16 23:17] LABS: Strep A Nucleic Acid Negative (Negative)
[2021-09-16 23:24] LABS: COVID-19 Test Negative (Negative)
--- NOTE | 2021-09-16 23:42 | ED.URI ---
HPI - URI/Sore Throat General Chief Complaint: Upper Respiratory Symptoms Stated Complaint: throat pain Time Seen by Provider: 09/16/21 22:50 Source: patient Mode of arrival: ambulatory History of Present Illness HPI Narrative: 36-year-old male who presents with every day smoking and a productive cough of brown sputum as well as sore throat and ?not feeling well?. Otherwise, he denies any fever, chills, GI or symptoms. Related Data Previous Rx's Medication Instructions Recorded cephalexin 500 mg tablet 500 mg PO BID 7 Days #14 tab 06/13/21 cephalexin 500 mg capsule 500 mg PO QID 7 Days #28 cap 06/15/21 doxepin 75 mg capsule 75 mg PO BEDTIME #30 cap 07/11/21 ProAir HFA 90 mcg/actuation 1 inh INHALATION QID PRN 30 Days 09/12/21 aerosol inhaler (albuterol sulfate) #8.5 g NS fluticasone propionate 50 1 spray INTRANASAL DAILY 30 Days 09/12/21 mcg/actuation nasal #16 g spray,suspension (Allergy Relief (fluticasone)) ibuprofen 600 mg tablet 600 mg PO Q6H PRN #30 tab 09/12/21 Allergies Allergy/AdvReac Type Severity Reaction Status Date / Time No Known Allergies Allergy Verified 09/16/21 22:47 Review of Systems Review of Systems: Pertinent positives or negatives as stated in HPI and 10 point review of systems is otherwise negative. [facility] Past Medical History Source: nursing notes reviewed Medical History Allergic rhinitis Chest wall pain Cocaine use Lumbar spondylosis Mild persistent asthma Polyuria Primary insomnia Screening for STD (sexually transmitted disease) Surgical History No pertinent past surgical history Family History Family History Father No problems noted. Mother Hypertension Brother No problems noted. Maternal Grandmother Hypertension Diabetes Maternal Grandfather CVD (cardiovascular disease) Paternal Grandmother No problems noted. Paternal Grandfather No problems noted. Social History Social History Housing: Apartment Patient Tobacco Use Status: Current everyday Tobacco user Tobacco use type: Cigarette Cigarettes Per Day: 2 e-Cigarette/Vaping Use: Never Used Second Hand Smoke Exposure: No Substance Use Type: Marijuana Advance Directives: No service: No Current occupational status: unemployed Physical Exam Vital Signs: Vital Signs: Last Vital Signs Temp 97.8 F 09/16/21 22:47 Pulse 70 09/16/21 22:47 Resp 18 09/16/21 22:47 BP 138/70 09/16/21 22:47 Pulse Ox 99 09/16/21 22:47 BMI result Body Mass Index 30.7 VITAL SIGNS: Reviewed. GENERAL: Well developed, well nourished, in no acute distress. HEAD: Normocephalic/atraumatic EYES: PERRLA, EOMI EARS: Ext canals without abnormality, TMs non-bulging and non-erythematous NOSE: Nares patent bilateral OROPHARYNX: no oral lesions noted, posterior pharynx clear and non-erythematous without noted tonsillar enlargement/erythema/exudates NECK: Supple, no adenopathy LUNGS: Normal breath sounds, no tachypnea/wheeze/rhonchi/rales SpO2<99> CARDIOVASCULAR: Regular rate and rhythm without noted murmurs ABDOMEN: Soft, non-tender, non-distended with bowel sounds. NEUROLOGIC: Alert and oriented x 4. Course Course Course Narrative: 36-year-old male with history and clinical presentation consistent with viral syndrome and on review both strep and COVID testing they are negative and patient was otherwise instructed to treat with [id number] Tylenol/ibuprofen /cough suppressant as well as saline gargles. He is otherwise discharged without tachypnea, tachycardia, and is afebrile and oxygenating well on room air. MDM - URI/Sore Throat Lab Data Labs: Lab Results 09/16/21 09/16/21 Range/Units 22:53 22:53 COVID-19 (DELFINO) Negative (Negative) COVID-19 Clin Com See Note S. pyogenes GrpA WINTER Negative (Negative) Discharge Plan Discharge Clinical Impression: Viral infection Patient Disposition: Home, Self-Care Instructions: Upper Respiratory Infection (ED) Additional Instructions: 1. Recomiende tratar navarro dolor de garganta con Tylenol/ibuprofeno de venta dana. Trate la tos con medicamentos para la tos de venta dana. 2. Jyothi g?rgaras con soluci?n salina (mezcle agua tibia con janet de tellez), jyothi g?rgaras rebeca 5 minutos, jyothi esto aproximadamente de 3 a 4 veces al d?a. 3. Jyothi un seguimiento con navarro proveedor de atenci?n primaria en los pr?ximos 1 a 2 d?as para chhaya reevaluaci?n. Regrese a la clara de emergencias si los s?ntomas empeoran. Prescriptions: No Action cephalexin 500 mg tablet 500 mg PO BID 7 Days Qty: 14 0RF doxepin 75 mg capsule 75 mg PO BEDTIME Qty: 30 3RF fluticasone propionate [Allergy Relief (fluticasone)] 50 mcg/actuation spray,suspension 1 spray intranasal DAILY 30 Days Qty: 16 6RF Rx Instructions: administer into each nostril ibuprofen 600 mg tablet 600 mg PO Q6H PRN (Reason: for pain) Qty: 30 6RF albuterol sulfate [ProAir HFA] 90 mcg/actuation HFA aerosol inhaler 1 inh inhalation QID PRN (Reason: bronchospasm) 30 Days Qty: 8.5 6RF cephalexin 500 mg capsule 500 mg PO QID 7 Days Qty: 28 0RF Print Language: Italian
== END 2021-09-17 00:41 | disposition home or self-care (01) ==
PROVIDERS: Emergency Provider Student in an Organized Health Care Education/Training Program
DX: B34.9 Viral infection, unspecified (principal); J02.9 Acute pharyngitis, unspecified; Z20.822 Contact with and (suspected) exposure to COVID-19; F17.200 Nicotine dependence, unspecified, uncomplicated; F12.90 Cannabis use, unspecified, uncomplicated
CPT/HCPCS: 87635; 87651; 99283

== ENCOUNTER → 2021-10-30 13:45 | Outpatient (BNVA) | payer OTHER, SELFPAY | PROVIDERS: PCP Internal Medicine; Visit Provider Physician Assistant | DX: Z13.89 Encounter for screening for other disorder (principal) ==

== ENCOUNTER 2021-12-17 06:24 | Outpatient (REF) | payer MEDICAID, SELFPAY ==
[2021-12-17 06:40] LABS: MANUAL DIFF FLAG NO
[2021-12-17 07:19] LABS: Basophils Absolute Auto 0.1 X10*3/uL (0.0-0.2); Basophils Percent Auto 0.8 % (0-2); Eosinophils Absolute Auto 0.5 X10*3/uL (0.0-0.4); Eosinophils Percent Auto 6.2 % (0-4); Imm Gran Abs Auto 0.02 X10*3/uL (0.00-0.03); Imm Gran Pct Auto 0.3 % (0.0-0.4); Lymphocytes Percent Auto 25.8 % (20-40); Mean Corpuscular HGB Conc 32.4 g/dl (31.0-36.0); Mean Corpuscular Hemoglobin 28.7 pg (27.0-33.0); Mean Corpuscular Volume 88.5 fL (80.0-98.0); Mean Platelet Volume 9.3 fL (9.4-12.4); Monocytes Absolute Auto 0.6 X10*3/uL (0.1-1.2); Monocytes Percent Auto 7.8 % (2-11); Neutrophils Absolute Auto 4.6 x10*3/uL (2.0-8.3); Neutrophils Percent Auto 59.1 % (45-73); Platelet Count 270 X10*3/uL (160-400); Red Blood Count 4.18 X10*6/uL (4.60-5.80); White Blood Count 7.7 X10*3/uL (4.8-10.8)
[2021-12-17 07:46] LABS: Alanine Aminotransferase 17 U/L (0-40); Albumin Level 4.1 g/dL (3.5-5.0); Alkaline Phosphatase 87 U/L (39-117); Anion Gap 11 (12-20); Aspartate Amino Transferase 17 U/L (5-37); Bilirubin Total 0.3 mg/dL (0.0-1.0); Blood Urea Nitrogen 13 mg/dL (9-16); Carbon Dioxide 22 mmol/L (22-29); Chloride 110 mmol/L (96-108); Cholesterol 146 mg/dL; Estimated Glomerular Filt Rate > 60; Glucose Fasting 92 mg/dL (60-99); HDL Cholesterol 34 mg/dL; Iron 25 mcg/dL (45-160); LDL Cholesterol Calculated 96 mg/dl; Percent Iron Saturation 6 % (15-50); Potassium 4.4 mmol/L (3.3-5.1); Sodium 139 mmol/L (135-145); Total Iron Binding Capacity 399 mcg/dL (228-428); Total Protein 7.1 g/dL (6.5-8.0); Triglycerides 81 mg/dL; Unsaturated Iron Binding 374 ug/dL
== END 2021-12-17 06:25 | disposition home or self-care (01) ==
LOC: HO.LAB 06:24
PROVIDERS: Absent Provider Physician Assistant; PCP Internal Medicine; Visit Provider Student in an Organized Health Care Education/Training Program
DX: Z00.00 Encounter for general adult medical examination without abnormal findings (principal); K62.5 Hemorrhage of anus and rectum; E78.5 Hyperlipidemia, unspecified
CPT/HCPCS: 36415; 80053; 80061; 83540; 85025

== ENCOUNTER 2022-04-06 07:55 | Outpatient (REF) | payer MEDICAID, SELFPAY | END 2022-04-06 07:56 | disposition home or self-care (01) | LOC: HO.HOSX 07:55 | PROVIDERS: Visit Provider Physician Assistant | DX: Z13.89 Encounter for screening for other disorder (principal) ==

== ENCOUNTER 2022-04-24 12:28 | Outpatient (REF) | payer MEDICAID, SELFPAY ==
--- NOTE | ~2022-04-24 | XR_ITS ---
EXAMINATION: XR HAND, RIGHT CLINICAL INFORMATION: Pain. COMPARISON: None TECHNIQUE: PA, lateral, and oblique views of the right hand. FINDINGS: The bones and soft tissues are normal. No fracture. Alignment is anatomic. Joint spaces are maintained. No erosions or soft tissue calcifications. XR/XR hand RT min 3V IMPRESSION: Normal right hand.
--- NOTE | ~2022-04-24 | XR_ITS ---
EXAMINATION: XR KNEE, LEFT XR KNEE AP STANDING CLINICAL INFORMATION: Pain. COMPARISON: Radiographs dated 11/03/2016. TECHNIQUE: Lateral and axial of the left knee were obtained. AP bilateral standing view of the knees was obtained. FINDINGS: Bones and soft tissues are normal. No fracture or joint effusion. Alignment is anatomic. Joint spaces are well maintained. No varus or valgus configuration is seen bilaterally. No abnormal soft tissue calcification. XR/XR knee LT 2V IMPRESSION: Normal views of the bilateral knees.
--- NOTE | ~2022-04-24 | XR_ITS ---
EXAMINATION: XR KNEE, LEFT XR KNEE AP STANDING CLINICAL INFORMATION: Pain. COMPARISON: Radiographs dated 11/03/2016. TECHNIQUE: Lateral and axial of the left knee were obtained. AP bilateral standing view of the knees was obtained. FINDINGS: Bones and soft tissues are normal. No fracture or joint effusion. Alignment is anatomic. Joint spaces are well maintained. No varus or valgus configuration is seen bilaterally. No abnormal soft tissue calcification. XR/XR knee standing BI IMPRESSION: Normal views of the bilateral knees.
--- NOTE | ~2022-04-24 | XR_ITS ---
EXAMINATION: XR SACRUM AND COCCYX CLINICAL INFORMATION: Lower back pain. COMPARISON: Radiographs dated 09/02/2016. TECHNIQUE: 2 views of the sacrum and 2 views of the coccyx were obtained. FINDINGS: There are no fractures. No bone, joint or soft tissue abnormality is demonstrated. XR/XR sacrum coccyx min 2V IMPRESSION: Unremarkable examination.
== END 2022-04-24 12:29 | disposition home or self-care (01) ==
LOC: HO.XRAY 12:28
PROVIDERS: Visit Provider Family Medicine
DX: M54.50 Low back pain, unspecified (principal); M79.641 Pain in right hand; M25.561 Pain in right knee; M25.562 Pain in left knee
CPT/HCPCS: 72220; 73130; 73560; 73565

== ENCOUNTER 2023-01-10 22:04 | Emergency (ER) | payer MEDICAID, SELFPAY ==
--- NOTE | ~2023-01-10 | XR_ITS ---
EXAMINATION: XR KNEE, RIGHT CLINICAL INFORMATION: Right knee pain. COMPARISON: Bilateral standing knees radiograph 04/24/2022. TECHNIQUE: Four views of the right knee. FINDINGS: No acute fractures or subluxation. Mild joint space narrowing of the medial compartment. No erosions or chondrocalcinosis. Moderate to large joint effusion. XR/XR knee RT 4V IMPRESSION: 1. No acute fractures or subluxation. 2. Mild degenerative osteoarthritis of the medial compartment. 3. Moderate to large joint effusion.
[2023-01-10 22:22] VITALS: BP 116/63; PULSE 86; RESP 16; TEMP 36.8; O2SAT 96
--- NOTE | 2023-01-10 23:47 | ED.LOWEXIN ---
HPI - Extremity Injury (Lower) General Chief Complaint: Extremity Injury, Lower Stated Complaint: right knee pain Time Seen by Provider: 01/10/23 23:34 Source: patient Mode of arrival: ambulatory Limitations: no limitations History of Present Illness HPI Narrative: Patient comes to emergency room complaining of right knee pain. Patient states that 3 days ago he was kneeling and when he stood up, he heard a popping noise from his knee. Patient states that since then, he has had increased swelling and pain. Patient is able to walk and bear weight but it hurts doing so. Patient states that several years ago he was told that he has a ligament that is torn and required surgery. At that time, patient refused surgery. Related Data Previous Rx's Medication Instructions Recorded ProAir HFA 90 mcg/actuation 1 inh inhalation QID PRN 09/12/21 aerosol inhaler (albuterol sulfate) bronchospasm 30 days #8.5 grams fluticasone propionate 50 1 spray intranasal DAILY 30 days 09/12/21 mcg/actuation nasal #16 grams spray,suspension (Allergy Relief (fluticasone)) ibuprofen 600 mg tablet 600 mg PO Q6H PRN for pain #30 tabs 09/12/21 simethicone 180 mg capsule (Gas 180 mg PO BID PRN abdominal 10/01/21 Relief (simethicone)) distention 30 days #60 caps umeclidinium 62.5 mcg-vilanterol 1 inh inhalation DAILY 30 days #60 10/01/21 25 mcg/actuation powdr for ea inhalation (Anoro Ellipta) methylcellulose (laxative) 500 mg 500 mg PO TID #90 tabs 10/30/21 tablet (Citrucel) Allergies Allergy/AdvReac Type Severity Reaction Status Date / Time No Known Allergies Allergy Verified 01/10/23 22:22 Review of Systems Review of Systems: Constitutional : No Weight loss, No Fever, No Chills, No Night Sweats, No Fatigue, No Malaise ENT/Mouth : No Hearing loss, No Ear Pain, No Nasal Congestion, No Sinus Pain, No Hoarseness, No sore throat, No Rhinorrhea, No Swallowing Difficulty Eyes: No Eye Pain, No Swelling, No Redness, No Foreign Body, No Discharge, No Vision Changes Cardiovascular : No Chest Pain, No SOB, No Dyspnea on Exertion, No Orthopnea, No Edema, No Palpitations Respiratory : No Cough, No Sputum, No Wheezing, No Smoke Exposure, No Dyspnea Gastrointestinal : No Nausea, No Vomiting, No Diarrhea, No Constipation, No abdominal Pain, No Hematochezia, No Melena Genitourinary : no irregular bleeding, No Dysuria, No Urinary Frequency, No Hematuria, No Urinary Incontinence, No Urgency, No Flank Pain, No Urinary Flow Changes, No Hesitancy Musculoskeletal : Complaining of any pain and swelling, No Myalgias, No Joint Swelling Skin : No Skin Lesions, No rash Neuro : No Weakness, No Numbness, No Paresthesias, No Loss of Consciousness, No Dizziness, No Headache Psych : No Anxiety/Panic, No Depression, No SI/HI/AH/VH, No Social Issues, Heme/Lymph: No Bruising, No Bleeding,No Lymphadenopathy Endocrine : No Polyuria, No Polydipsia, No Temperature Intolerance PMFSH Past Medical History Medical History Abdominal gas pain Allergic rhinitis Bloody stools Chest wall pain Cocaine use Encounter for physical examination Lumbar spondylosis Mild persistent asthma Polyuria Primary insomnia Screening for STD (sexually transmitted disease) Surgical History History of esophagogastroduodenoscopy (EGD) Hx of colonoscopy No pertinent past surgical history Family History Family History Father No problems noted. Mother Hypertension Brother No problems noted. Maternal Grandmother Hypertension Diabetes Maternal Grandfather CVD (cardiovascular disease) Paternal Grandmother No problems noted. Paternal Grandfather No problems noted. Social History Social History (Updated 10/30/21 @ 15:14 by Bridget Melo PA-C) Housing: Apartment Patient Tobacco Use Status: Current everyday Tobacco user Tobacco use type: Cigarette Cigarettes Per Day: 2 e-Cigarette/Vaping Use: Never Used Second Hand Smoke Exposure: No Substance Use Type: Marijuana Advance Directives: No Advance Directives Information Provided: No service: No Current occupational status: unemployed and disabled Physical Exam Vital Signs: Vital Signs: Last Vital Signs Temp 98.2 F 01/10/23 22:22 Pulse 86 01/10/23 22:22 Resp 16 01/10/23 22:22 BP 116/63 01/10/23 22:22 Pulse Ox 96 01/10/23 22:22 O2 Del Method Room Air 01/10/23 22:22 BMI result Body Mass Index 30.0 Const: Other: Appearance: Alert. Oriented X3. No acute distress. Eyes: Pupils equal, round and reactive to light. ENT: Pharynx normal. Neck: Normal inspection. Neck supple. No lymph nodes noted. No crepitus CVS: Normal heart rate and rhythm. Pulses normal. Normal S1 and S2 Respiratory: No respiratory distress. Breath sounds normal. No Wheezing. No rales Abdomen: Soft and nontender. No rigidity. No distention. Skin: Skin warm and dry. Normal skin color. Normal skin turgor. Extremities: No lower extremity edema. No Lacerations. No Rash. There is a moderate effusion on the right knee medially. Patient is able to flex and extend the knee, no erythema, no additional warmth, septic joint not suspected. Neuro: Oriented X 3. No motor deficit. No sensory deficit. Moving all extremities. No slurred speech. CN 2 through 12 grossly intact Psych: calm, cooperative, normal affect Medical Decision Making Medical Decision Making MDM Narrative: -I discussed the x-ray with the patient, no fracture. However, I discussed with the patient that it is likely that he has a ligament injury. Patient will likely need an MRI. Patient was given an Carlton wrap and crutches. Patient instructed to follow-up with his primary care physician and also with Orthopedics. Radiology Impression Discussion of test interpretation with radiology: I have reviewed the radiologist's reading. Radiologist Impression: FINDINGS: No acute fractures or subluxation. Mild joint space narrowing of the medial compartment. No erosions or chondrocalcinosis. Moderate to large joint effusion.? XR/XR knee RT 4V IMPRESSION: 1.? No acute fractures or subluxation. 2.? Mild degenerative osteoarthritis of the medial compartment. 3.? Moderate to large joint effusion. Discharge Plan Discharge Clinical Impression: Injury of knee, ligament Patient Disposition: Home, Self-Care Instructions: R.I.C.E. Treatment (ED), Knee Pain (ED), Crutch Instructions (ED) Additional Instructions: Please follow-up with your primary care physician tomorrow. If you have any worsening or new symptoms, please return to the emergency room or call 911 Prescriptions: No Action fluticasone propionate [Allergy Relief (fluticasone)] 50 mcg/actuation spray,suspension 1 spray intranasal DAILY 30 Days Qty: 16 6RF Rx Instructions: administer into each nostril ibuprofen 600 mg tablet 600 mg PO Q6H PRN (Reason: for pain) Qty: 30 6RF albuterol sulfate [ProAir HFA] 90 mcg/actuation HFA aerosol inhaler 1 inh inhalation QID PRN (Reason: bronchospasm) 30 Days Qty: 8.5 6RF simethicone [Gas Relief (simethicone)] 180 mg capsule 180 mg PO BID PRN (Reason: abdominal distention) 30 Days Qty: 60 0RF Anoro Ellipta 62.5-25 mcg/actuation blister with device 1 inh inhalation DAILY 30 Days Qty: 60 3RF Citrucel 500 mg tablet 500 mg PO TID Qty: 90 5RF Referrals: Jennifer Ritter PA-C [Physician [facility]] - 01/11/23
== END 2023-01-11 00:05 | disposition home or self-care (01) ==
PROVIDERS: Emergency Provider Emergency Medicine
DX: S89.91XA Unspecified injury of right lower leg, initial encounter (principal); X50.9XXA Other and unspecified overexertion or strenuous movements or postures, initial encounter; M25.461 Effusion, right knee; M25.561 Pain in right knee; F17.210 Nicotine dependence, cigarettes, uncomplicated; F12.90 Cannabis use, unspecified, uncomplicated; Y93.9 Activity, unspecified; Y92.9 Unspecified place or not applicable; Y99.9 Unspecified external cause status
CPT/HCPCS: 73564; 99282; 99283

== ENCOUNTER 2023-02-18 12:59 | Outpatient (AMB) | payer MEDICAID, SELFPAY ==
--- NOTE | 2023-02-18 13:05 | A.OFFVIS_ITS ---
Intake Vital Signs 02/18/23 13:22 Height 5 ft 5 in Weight 180 lb BMI 30.0 Intake Visit Reasons: JUNIOR PARALEGAL- Right knee OA Intake Note: Ministerio is a 37 year old male who presents today as a new patient with complaints of right knee pain. He was seen in [facility] ED on 01/07/23, three days prior he reports that he was kneeling & upon standing he felt a pop in the right knee. Hx of ACL & Meniscal tear, surgical treatment was recommended, but surgery was cancelled. Currently he complaints of pain and swelling with twisting motions, limited ROM and the knee gives out. Allergies No Known Allergies Allergy (Verified 01/10/23 22:22) HPI JUNIOR PARALEGAL- Right knee OA HPI Details Ministerio is a 37 year old man who presents with complaints of worsening right knee pain. He has a Hx of an ACL and meniscus tears, and did not have surgery to repair this. He says he stood from a kneeling position on 01/07/23 and felt a painful popping sensation in his knee. He was seen in the ED on 01/10/23, given an MICHAELA wrap and crutches. He complains today of worsening pain & swelling in his knee, worth with twisting activities. He feels limited in his ROM and weakness in his knee. [facility] Medical History Abdominal gas pain Allergic rhinitis Bloody stools Chest wall pain Cocaine use Encounter for physical examination Lumbar spondylosis Mild persistent asthma Polyuria Primary insomnia Screening for STD (sexually transmitted disease) Surgical History History of esophagogastroduodenoscopy (EGD) Hx of colonoscopy No pertinent past surgical history Family History Father No problems noted. Mother Hypertension Brother No problems noted. Maternal Grandmother Hypertension Diabetes Maternal Grandfather CVD (cardiovascular disease) Paternal Grandmother No problems noted. Paternal Grandfather No problems noted. Social History Housing: Apartment Patient Tobacco Use Status: Current everyday Tobacco user Tobacco use type: Cigarette Cigarettes Per Day: 2 e-Cigarette/Vaping Use: Never Used Second Hand Smoke Exposure: No Substance Use Type: Marijuana service: No Current occupational status: unemployed and disabled Review of Systems Const All systems reviewed & are unremarkable except as noted in HPI and below Physical Exam Vital Signs: BMI result Body Mass Index 30.0 Const General: no acute distress, alert and awake Orientation/consciousness: patient oriented x3 HEENT Head: Yes normocephalic and Yes atraumatic Eyes EOM: EOMs intact bilaterally Resp Effort & Inspection: normal respiratory effort and able to speak in complete sentences Cardio Jugular venous distension: no JVD Skin General skin exam: turgor normal Rashes: no rashes Neuro General: patient oriented x3 Extrem Other: Right Knee: 2+ Sandra's 1+ effusion Full ROM 1+ Valgus laxity Psych Appearance: grossly normal Affect: normal affect Attitude: cooperative Results Reviewed Results Reviewed: I personally reviewed relevant radiographs. Right knee: 1. No acute fractures or subluxation. 2. Mild degenerative osteoarthritis of the medial compartment. 3. Moderate to large joint effusion. Assessment & Plan Assessment & Plan (1) Tear of meniscus of right knee: Code(s): S83.206A - Unspecified tear of unspecified meniscus, current injury, right knee, initial encounter Plan: This is a 37 year old man with an ACL and h/o meniscus tear of his right knee, with a moderate effusion, which has worsened in the last 6 weeks. He has pain and instabilitydaily activity, worse with twisting activities, and weakness. I discussed his diagnosis and treatment options. I ordered an MRI to assess his right knee and the status of his ACL which I susp[ect is absent. He will follow up when completed for review. (2) Effusion, right knee: Code(s): M25.461 - Effusion, right knee Plan Scribed for Lee Waters MD by Gabriel Espino, director medical writing, on 02/18/23 at 1:50 PM, EST. Orders: Orders MR knee RT wo con 02/18/23 M25.461 - Effusion, right knee, M23.91 - Unspecified internal derangement of right knee Coding Level of Care Code New Pt Level 4 (65818) Diagnoses Tear of meniscus of right knee S83.206A Effusion, right knee M25.461
== END 2023-02-18 14:00 | disposition home or self-care (01) ==
PROVIDERS: Visit Provider Orthopaedic Surgery
DX: M25.461 Effusion, right knee (principal); S83.206A Unspecified tear of unspecified meniscus, current injury, right knee, initial encounter
CPT/HCPCS: 99204

== ENCOUNTER → 2023-02-18 12:59 | Outpatient (BNVA) | payer MEDICAID, SELFPAY | PROVIDERS: Visit Provider Orthopaedic Surgery | DX: S83.206A Unspecified tear of unspecified meniscus, current injury, right knee, initial encounter (principal); M25.461 Effusion, right knee | CPT/HCPCS: 99202 ==

== ENCOUNTER 2023-05-18 17:24 | Outpatient (REF) | payer MEDICAID, SELFPAY ==
--- NOTE | ~2023-05-18 | MR_ITS ---
EXAMINATION: MR KNEE WITHOUT CONTRAST, RIGHT CLINICAL INFORMATION: Chronic right knee pain. COMPARISON: MRI 02/05/2014 TECHNIQUE: MRI of the knee without contrast was performed using routine sequences on a high-field scanner. FINDINGS: MENISCI: Medial Meniscus: Bucket-handle tear with centrally and anteriorly flipped fragment. There is a chronic vertical longitudinal tear of the posterior horn remnant. Lateral Meniscus: Small chronic inner margin tear of the posterior horn. LIGAMENTS: Cruciate: Chronic complete or near-complete ACL tear. The posterior cruciate ligament appears intact. Collateral: Intact EXTENSOR MECHANISM: Intact ARTICULAR CARTILAGE/BONE: Patellofemoral Compartment: Focal cartilage signal heterogeneity of the medial patellar facet, similar to previous. Medial Compartment: Peripheral cartilage thinning of the tibia posteromedially with small marginal osteophytes. Lateral Compartment: Cartilage thinning with focal full-thickness loss and small marginal osteophyte of the tibia posteriorly. JOINT FLUID AND BURSAE: Small joint effusion. MR/MR knee RT wo con IMPRESSION: 1. Chronic complete or near-complete ACL tear. 2. Bucket-handle tear of the medial meniscus with centrally and anteriorly flipped fragment. Chronic vertical longitudinal tear of the posterior horn remnant. 3. Small chronic inner margin tear of the posterior horn of the lateral meniscus. 4. Mild tricompartmental osteoarthritis with a small joint effusion.
== END 2023-05-18 17:25 | disposition home or self-care (01) ==
LOC: HO.MRI 17:24
PROVIDERS: Visit Provider Orthopaedic Surgery
DX: M25.461 Effusion, right knee (principal); M23.91 Unspecified internal derangement of right knee
CPT/HCPCS: 73721

== ENCOUNTER 2023-06-03 14:45 | Outpatient (AMB) | payer MEDICAID, SELFPAY ==
--- NOTE | 2023-06-03 14:45 | A.OFFVIS_ITS ---
Intake Intake Visit Reasons: ov- MRI Knee RT Review Intake Note: Ministerio is a 37 year old male who presents today for an MRI review of his right knee Allergies No Known Allergies Allergy (Verified 01/10/23 22:22) HPI ov- MRI Knee RT Review HPI Details Ministerio is a 37 year old man who presents for an MRI review of his worsening right knee pain. He has a Hx of an ACL and meniscus tears, and did not have surgery to repair this. He continues to complain of worsening pain & swelling in his knee, worth with tw isting activities. He feels limited in his ROM and weakness in his knee. [facility] Medical History Abdominal gas pain Allergic rhinitis Bloody stools Chest wall pain Cocaine use Encounter for physical examination Lumbar spondylosis Mild persistent asthma Polyuria Primary insomnia Screening for STD (sexually transmitted disease) Surgical History History of esophagogastroduodenoscopy (EGD) Hx of colonoscopy No pertinent past surgical history Family History Father No problems noted. Mother Hypertension Brother No problems noted. Maternal Grandmother Hypertension Diabetes Maternal Grandfather CVD (cardiovascular disease) Paternal Grandmother No problems noted. Paternal Grandfather No problems noted. Social History Housing: Apartment Patient Tobacco Use Status: Current everyday Tobacco user Tobacco use type: Cigarette Cigarettes Per Day: 2 e-Cigarette/Vaping Use: Never Used Second Hand Smoke Exposure: No Substance Use Type: Marijuana service: No Current occupational status: unemployed and disabled Review of Systems Const All systems reviewed & are unremarkable except as noted in HPI and below Physical Exam Const General: no acute distress, alert and awake Orientation/consciousness: patient oriented x3 HEENT Head: Yes normocephalic and Yes atraumatic Eyes EOM: EOMs intact bilaterally Resp Effort & Inspection: normal respiratory effort and able to speak in complete sentences Cardio Jugular venous distension: no JVD Skin General skin exam: turgor normal Rashes: no rashes Neuro General: patient oriented x3 Extrem Other: Right Knee: 2+ Asndra's 1+ effusion Full ROM 1+ Valgus laxity Psych Appearance: grossly normal Affect: normal affect Attitude: cooperative Results Reviewed Results Reviewed: I personally reviewed relevant MR images 1. Chronic complete or near-complete ACL tear. 2. Bucket-handle tear of the medial meniscus with centrally and anteriorly flipped fragment. Chronic vertical longitudinal tear of the posterior horn remnant. 3. Small chronic inner margin tear of the posterior horn of the lateral meniscus. 4. Mild tricompartmental osteoarthritis with a small joint effusion. Assessment & Plan Assessment & Plan (1) Complete tear of right ACL: Code(s): S83.511A - Sprain of anterior cruciate ligament of right knee, initial encounter Plan: This is a 37 year old man with a complete ACL tear & partial bucket-handle MMT of his right knee. He has pain and instability with daily activity, worse with twisting activities, and weakness. This has not improved in the last several months. I discussed his diagnosis and treatment options. I recommend a right knee ACL reconstruction with allograft. I discussed the risks, benefits, and alternatives including, but not limited to, the risk of pain, infection, stiffness, need for further surgery as well as potential medical complications such as blood clots, pulmonary embolism and cardiac complications. I discussed the recovery timeline and process as well as the importance of PT. Ministerio is a good candidate for this surgery, and he wishes to proceed with this decision. He will speak with Kiki to schedule this procedure. (2) Tear of meniscus of right knee: Code(s): S83.206A - Unspecified tear of unspecified meniscus, current injury, right knee, initial encounter (3) Effusion, right knee: Code(s): M25.461 - Effusion, right knee Plan Scribed for Lee Waters MD by Gabriel Espino, clinical medical transcriptionist, on 06/03/23 at 3:10 PM, EST. Coding Level of Care Code Est Pt Level 4 (77312) Diagnoses Complete tear of right ACL S83.511A Tear of meniscus of right knee S83.206A Effusion, right knee M25.461
== END 2023-06-03 15:38 | disposition home or self-care (01) ==
PROVIDERS: Visit Provider Orthopaedic Surgery
DX: S83.511A Sprain of anterior cruciate ligament of right knee, initial encounter (principal); S83.206A Unspecified tear of unspecified meniscus, current injury, right knee, initial encounter; M25.461 Effusion, right knee
CPT/HCPCS: 99214

== ENCOUNTER → 2023-06-03 14:45 | Outpatient (BNVA) | payer MEDICAID, SELFPAY | PROVIDERS: Visit Provider Orthopaedic Surgery | DX: S83.511A Sprain of anterior cruciate ligament of right knee, initial encounter (principal); S83.206A Unspecified tear of unspecified meniscus, current injury, right knee, initial encounter; M25.461 Effusion, right knee | CPT/HCPCS: 99212 ==

== ENCOUNTER 2023-08-07 07:11 | Outpatient (REF) | payer MEDICAID, SELFPAY ==
[2023-08-07 08:00] LABS: Estimated Average Glucose 100 mg/dL; Hemoglobin A1c % 5.1 % (<6.0)
[2023-08-07 08:30] LABS: Alanine Aminotransferase 22 U/L (0-40); Albumin Level 4.1 g/dL (3.5-5.0); Alkaline Phosphatase 84 U/L (39-117); Anion Gap 11 (12-20); Aspartate Amino Transferase 30 U/L (5-37); Bilirubin Total 0.3 mg/dL (0.0-1.0); Blood Urea Nitrogen 11 mg/dL (9-16); Calcium 9.2 mg/dL (8.4-10.2); Carbon Dioxide 22 mmol/L (22-29); Chloride 109 mmol/L (96-108); Cholesterol 146 mg/dL (<200); Estimated Glomerular Filt Rate > 60; Glucose Random 95 mg/dL (60-115); HDL Cholesterol 39 mg/dL (>40); LDL Cholesterol Calculated 86 mg/dL (<100); Potassium 4.4 mmol/L (3.3-5.1); Sodium 138 mmol/L (135-145); Total Protein 7.3 g/dL (6.5-8.0); Triglycerides 109 mg/dL (<150)
[2023-08-08 05:07] LABS: HBS Num1 > 1000.00 mIU/mL (0-7.99); ~Hepatitis B Surface Antibody REACTIVE (Nonreactive)
== END 2023-08-07 07:12 | disposition home or self-care (01) ==
LOC: HO.LAB 07:11
PROVIDERS: PCP Registered Nurse; Visit Provider Registered Nurse
DX: Z00.00 Encounter for general adult medical examination without abnormal findings (principal)
CPT/HCPCS: 36415; 80053; 80061; 83036; 86706

== ENCOUNTER 2024-11-27 23:02 | Emergency (ER) | payer MEDICAID, SELFPAY ==
--- NOTE | ~2024-11-27 | XR_ITS ---
CLINICAL HISTORY: injury pain swelling 3 view right foot Comparison: None Findings: No fractures or dislocations. Small posterior calcaneal spur. No erosion. No ankle effusion. No radiopaque foreign body. IMPRESSION: Lateral ankle and foot soft tissue swelling. No soft tissue gas or fracture. This document has been electronically signed by: Li Gomez MD on 11/28/2024 00:05:42
[2024-11-27 23:11] VITALS: BP 108/57; PULSE 98; RESP 18; TEMP 36.8; O2SAT 95; BMI 29.1
--- NOTE | 2024-11-28 02:38 | ED.LOWEXIN ---
HPI - Extremity Injury (Lower) General Chief Complaint: Extremity Injury, Lower Stated Complaint: feet pain? sent by [facility] Time Seen by Provider: 11/28/24 01:44 Source: patient Mode of arrival: ambulatory Limitations: no limitations History of Present Illness ED Provider: Hailee Mathias NP HPI Narrative: Patient is a 39-year-old male presents to the emergency department for evaluation. He reports 2-3 days ago he stepped on the trickle cord to a fan felt a ?crunch? to the bottom of his right heel. He has had continuous pain to the heel as well as the ankle that exacerbates with weight-bearing. He has eyes symptoms would resolve after day but since they did not a came to the ED to seek evaluation. He denies any numbness tingling or cold sensation to the foot. Related Data Home Medications ?Medication ?Instructions ?Recorded ?Confirmed cetirizine 10 mg tablet 10 mg PO DAILY PRN Allergy Symptoms 08/09/23 08/09/23 diphenhydramine HCl 25 mg tablet 25 mg PO BEDTIME PRN Itching 08/09/23 08/09/23 fluticasone propionate 50 1 - 2 spray intranasal DAILY PRN 08/09/23 08/09/23 mcg/actuation nasal allergies spray,suspension meloxicam 7.5 mg tablet 7.5 - 15 mg PO DAILY PRN pain 08/09/23 08/09/23 Previous Rx's ?Medication ?Instructions ?Recorded ProAir HFA 90 mcg/actuation 1 inh inhalation QID PRN 09/12/21 aerosol inhaler (albuterol sulfate) bronchospasm 30 days #8.5 grams ibuprofen 600 mg tablet 600 mg PO Q6H PRN for pain #30 tabs 09/12/21 simethicone 180 mg capsule (Gas 180 mg PO BID PRN abdominal 10/01/21 Relief (simethicone)) distention 30 days #60 caps umeclidinium 62.5 mcg-vilanterol 1 inh inhalation DAILY 30 days #60 10/01/21 25 mcg/actuation powdr for ea inhalation (Anoro Ellipta) methylcellulose (laxative) 500 mg 500 mg PO TID #90 tabs 10/30/21 tablet (Citrucel) Allergies Allergy/AdvReac Type Severity Reaction Status Date / Time No Known Allergies Allergy Verified 11/27/24 23:18 Review of Systems Review of Systems: Yes all other systems are reviewed and are negative [facility] Past Medical History Attestation statement: The following information was validated with the patient. Source: old records reviewed Medical History Abdominal gas pain Bloody stools Encounter for physical examination Cocaine use Chest wall pain Mild persistent asthma Screening for STD (sexually transmitted disease) Polyuria Allergic rhinitis Primary insomnia Lumbar spondylosis Surgical History Hx of colonoscopy History of esophagogastroduodenoscopy (EGD) Family History Family History Father No problems noted. Mother Hypertension Brother No problems noted. Maternal Grandmother Hypertension Diabetes Maternal Grandfather CVD (cardiovascular disease) Paternal Grandmother No problems noted. Paternal Grandfather No problems noted. Social History Social History Housing: Apartment Patient Tobacco Use Status: Current everyday Tobacco user Tobacco use type: Cigarette Cigarettes Per Day: 2 e-Cigarette/Vaping Use: Never Used Second Hand Smoke Exposure: No Substance Use Type: Marijuana Advance Directives: No Advance Directives Information Provided: Yes service: No Current occupational status: unemployed and disabled Physical Exam Vital Signs: Vital Signs: Last Vital Signs Temp 98.2 F 11/27/24 23:11 Pulse 98 11/27/24 23:11 Resp 18 11/27/24 23:11 BP 108/57 L 11/27/24 23:11 Pulse Ox 95 11/27/24 23:11 O2 Del Method Room Air 11/27/24 23:11 BMI result Body Mass Index 29.1 Appearance: Alert.?Oriented to person, place and time. No acute distress.?Normal affect. CVS: Heart sounds normal. Normal heart rate and rhythm.? Pulses normal.?? Respiratory: No respiratory distress.? Lung sounds clear to auscultation bilaterally?? Skin: Skin warm and dry.? Normal skin color.? Extremities: Localized edema to the lateral and medial malleolus obvious deformity. There is tenderness upon palpation to the calcaneal heel. There was no ecchymosis or erythema. There is no palpable deformity and tenderness along the Achilles tendon insertion site. Negative Arauz test. Neuro: Moves all extremities spontaneously. Sensation intact bilaterally. Ambulates with normal steady gait. Medical Decision Making Medical Decision Making MDM Narrative: Patient is a 39-year-old male who presents emergency department for evaluation of paid to the right heel as per HPI. He does have localized swelling to the ankle as well with mild tenderness upon palpation tenderness to the calcaneal heel. There is no palpable tenderness or deformity over the Achilles tendon. Negative Arauz test. Do not suspect Achilles tendon rupture. XR of the foot was obtained there is no evidence of acute fracture dislocation. The extremities neurovascularly intact distally. Reviewed treatment including immobilization, refraining from weight-bearing, offered crutches he however declines. Reviewed additionally rest, ice, aircast for support, compression elevation and acetaminophen/ibuprofen for pain. All questions were answered. Advised outpatient follow-up with primary care doctor Differential Diagnosis Differential Diagnoses: The differential diagnosis associated with the presentation includes (See narrative above) Independent Interpretation I performed an independent interpretation of an: Plain X-Ray (See narrative above) Radiology Impression Discussion of test interpretation with radiology: I have reviewed the radiologist's reading. Radiologist Impression: 3 view right foot Comparison: None Findings: No fractures or dislocations. Small posterior calcaneal spur. No erosion. No ankle effusion. No radiopaque foreign body. IMPRESSION: Lateral ankle and foot soft tissue swelling. No soft tissue gas or fracture. External Record Review External record reviewed: Outpatient record Tests considered The following testing was considered but not selected: Would defer ultrasound imaging of the Achilles, unlikely Achilles rupture as noted above Prescription Management I considered prescription management with: Pain Medication Discharge Plan Discharge Clinical Impression: Right ankle sprain, Contusion of foot, right Patient Disposition: Home, Self-Care Instructions: Ankle Sprain (ED), P.R.I.C.E. Treatment (ED) Additional Instructions: You can take ibuprofen 200 mg, 3 tablets (600mg) every 6-8 hours as needed for pain, in addition to Tylenol 500 mg, 2 tablets (1,000mg) every 4-6 hours as needed for pain, but not to exceed 3 doses daily (3,000mg).? Apply ice for 10-15 minutes 3-4 times daily. Elevate the leg above the level of your chest when you can. Prescriptions: No Action ibuprofen 600 mg tablet 600 mg PO Q6H PRN (Reason: for pain) Qty: 30 6RF albuterol sulfate [ProAir HFA] 90 mcg/actuation HFA aerosol inhaler 1 inh inhalation QID PRN (Reason: bronchospasm) 30 Days Qty: 8.5 6RF cetirizine 10 mg Tablet 10 mg PO DAILY PRN (Reason: Allergy Symptoms) meloxicam 7.5 mg tablet 7.5 - 15 mg PO DAILY PRN (Reason: pain) diphenhydramine HCl 25 mg Tablet 25 mg PO BEDTIME PRN (Reason: Itching) fluticasone propionate 50 mcg/actuation spray,suspension 1 - 2 spray intranasal DAILY PRN (Reason: allergies) simethicone [Gas Relief (simethicone)] 180 mg capsule 180 mg PO BID PRN (Reason: abdominal distention) 30 Days Qty: 60 0RF Anoro Ellipta 62.5-25 mcg/actuation blister with device 1 inh inhalation DAILY 30 Days Qty: 60 3RF Citrucel 500 mg tablet 500 mg PO TID Qty: 90 5RF Referrals: [facility] [Primary Care Provider] - Print Language: Ecuadorean
[2024-11-28 02:59] VITALS: BP 108/57; PULSE 98; RESP 18; TEMP 36.8; O2SAT 95
== END 2024-11-28 03:00 | disposition home or self-care (01) ==
PROVIDERS: Emergency Provider Emergency Medicine Emergency Medical Services
DX: S93.401A Sprain of unspecified ligament of right ankle, initial encounter (principal); S90.31XA Contusion of right foot, initial encounter; W22.8XXA Striking against or struck by other objects, initial encounter; Y93.9 Activity, unspecified; Y92.9 Unspecified place or not applicable; Y99.9 Unspecified external cause status
CPT/HCPCS: 73630; 99282; 99283

== ENCOUNTER → 2024-11-27 23:27 | Outpatient (BNV) | payer MEDICAID, SELFPAY | PROVIDERS: Visit Provider Radiology Diagnostic Radiology | DX: R22.41 Localized swelling, mass and lump, right lower limb (principal) | CPT/HCPCS: 73630 ==

== ENCOUNTER 2024-12-04 11:15 | Outpatient (REF) | payer MEDICAID, SELFPAY ==
--- NOTE | ~2024-12-04 | US_ITS ---
EXAMINATION: US LOWER EXTREMITY VEINS LIMITED FOLLOW UP RIGHT HISTORY: RIGHT LEG SWELLING COMPARISON: There are no prior studies for comparison. TECHNIQUE: Duplex and color Doppler sonographic examination of the deep venous system of the right lower extremity was performed. FINDINGS: The common femoral, superficial femoral, and popliteal veins are patent demonstrating normal compressibility, spontaneous flow, and augmentation. There is a normal color and spectral Doppler waveform appearance of the visualized deep venous system above the knee. The posterior tibial and peroneal veins are patent. US/US venous duplex LE RT IMPRESSION: No evidence of acute DVT in the right lower extremity. Electronically signed by: Cory Portillo MD 12/04/2024 11:45 AM EDT
--- OUTSIDE RECORDS SUMMARY | 2024-12-04 12:04 | XMS_ITS | Encounter Summary ---
Author Organization [employer] Address [address] [place] [address] Care Team Providers Care Parts Control Clerk Name Role Phone Stacey Pond CABLE INSTALLER Primary Care Provider [phone] Encounter Details Date Type Department Care Team ([facility] st Contact Info) Description 12/04/2024 Telephone [facility] [address] [place], [place] [id number] Marie España MA Social History Tobacco Use Types Packs/Day Years Used Date Smoking Tobacco: Every Day Cigarettes Passive Smoke Exposure: Current Smokeless Tobacco: Never Alcohol Use Standard Drinks/Week Comments Yes 0 (1 standard drink = 0.6 oz pur e alcohol) every weekend Depression Answer Date Recorded Patient Health Questionnaire-9 Score 18 01/04/2023 Housing Stability Answer Date Recorded What is your housing situation today? I have [employer] 05/31/[address] you li ve. Do you have problems with any of the following? None of the above 05/31/2023 Food Insecurity Answer Date Recorded Within the past 12 months, y ou worried that your food would run out before you got money to buy more: Often true 05/31/2023 Within the past 12 months,th e food you bought just didn't last and you didn't have enough money to get more: Often true 12/2022 Transportation Answer Date Recorded In the past 12 months, has l ack of transportation kept you from medical appts, meetings, work or from getting things needed for daily living? No 05/31/2023 Utilities Answer Date Recorded In the past 12 months, has t he electric, gas, oil or water company threatened to shut off services in your home? No 05/31/2023 Depression Answer Date Recorded Patient Health Questionnaire-2 Score 4 01/04/2023 Sex and Gender Information Value Date Recorded Sex Assigned at Male 05/25/2022 10:25 AM EDT Legal Sex Male 10:25 AM EDT Gender Identity Male 02/17/2023 10:32 AM EDT Sexual Orientation Choose not to disclose 2021 10:25 AM EDT documented as of this encounter Miscellaneous Notes * Telephone Encounter - Marie España MA - 12/04/2024 10:49 AM EDT Called pt to schedule [facility]AT intake, pt agreed to appt on 12/05 @ 1:00 for an market research intern with Georgiana BRICENO. documented in this encounter Plan of Treatment Upcoming Encounters Date Type Department Care Team ([facility] st Contact Info) Description 12/05/2024 1:00 PM EDT Office Visit [facility]INE [address] [place] [phone] Georgiana Mobley, RN [address] [place] [phone] 12/05/2024 3:00 PM EDT Office Visit [facility] [address] [place] [phone] Sonny Joseph MD [address] [place] [phone] 02/14/2025 10:00 AM EDT Office Visit [address] [phone] Stacey Pond FNP [address] [place] [phone] documented as of this encounter Visit Diagnoses Not on filedocumented in this encounter Additional Health Concerns Assessment Noted Time PHQ-9 Depression Total Score: 18 023 10:22 AM EDT documented as of this encounter Care Teams Parts Control Clerk Relationship Specialty Start Date End Date Stacey Pond FNP [address] [place] [phone] PCP - General Family Medicine 02/04/22 documented as of this encounter
--- OUTSIDE RECORDS SUMMARY | 2024-12-04 12:04 | XMS_ITS | Encounter Summary ---
Author Organization [employer] Address [address] [place] [address] Care Team Providers Care Personal Fitness Trainer Name Role Phone Stacey Pond BOILER REPAIR SUPERVISOR Primary Care Provider [phone] Encounter Details Date Type Department Care Team ([facility] st Contact Info) Description 11/30/2024 Telephone [facility] [address] [place] [address] Lela Meek MD [address] [place] [address] Social History Tobacco Use Types Packs/Day Years [...] encounter Miscellaneous Notes * Telephone Encounter - Mina Mora - 11/30/2024 11:20 AM EDT Per [facility] [place] Show to [facility] Lower extremity appt . documented in this encounter Plan of Treatment Upcoming Encounters Date Type Department Care Team (Late st Contact Info) Description 12/05/2024 1:00 PM EDT Office Visit [facility] MED[facility]INE [address] [place] [phone] Georgiana Mobley, JANAK [address] [place] [phone] 12/05/2024 3:00 PM EDT Office Visit [address] [address] Sonny Joseph MD [address] [place] [phone] 02/14/2025 10:00 AM EDT Office Visit [facility] [address] [place] [phone] Stacey Pond FNP [address] [place] [phone] documented as of this encounter Visit Diagnoses Not on filedocumented in this encounter Additional Health Concerns Assessment Noted Time PHQ-9 Depression Total Score: 18 023 10:22 AM EDT documented as of this encounter Care Teams Personal Fitness Trainer Relationship Specialty Start Date End Date Stacey Pond FNP [address] [place] [address] PCP - General Family Medicine 02/04/22 documented as of this encounter
--- OUTSIDE RECORDS SUMMARY | 2024-12-04 12:04 | XMS_ITS | Clinical Summary ---
Author Organization [employer] Address [address] [facility] 7[address] [place] [address] Care Team Providers Care Greige Goods Inspector Name Role Phone Stacey Pond [employer] Primary Care Provider [phone] Allergies No known active allergies Medications * This document contains information received from the source organization and may not represent a complete record from that organization. albuterol 108 (90 Base) MCG/ACT inhaler inhale 2 puff by inhalation route every 4 - 6 hours as needed 2 Active ascorbid acid ER (Vitamin C) 500 MG ER tablet Take one tablet with your iron supplement and a full glass of water 2 Active cetirizine (ZyrTEC) 10 MG tablet take 1 tablet by oral route every day as needed for allergies 2 Active diphenhydrAMINE (BENADryl) 25 MG capsule take 1-2 Capsule by oral route at bedtime prn itching 2 Active ferrous sulfate 325 (65 Fe) MG tablet take1 tablet by oral route every day with a full glass of water 2 Active hydrocortisone (Anusol-HC) 2.5 % rectal cream apply by topical route 4 times every day to the affected area(s) 2 Active ketoconazole (NIZOral) 2 % shampoo apply by topical route every day to the affected area(s), lather, leave in place for 5 minutes, and then rinse off with water. Apply for 3 days. 2 Active mupirocin (Bactroban) 2 % ointment apply pea sized amount by topical route on each nostril twice a day for 5 days 2 Active sodium chloride (Deep Sea Nasal [place]) 0.65 % nasal sprayIndication s:Seasonal allergies USE 1-2 SPRAYS IN EACH NOSTRIL EVERY 2 TO 3 HOURS NEEDED FOR NASAL CONGESTION 44 mL 1 3 Active fluticasone (Flonase) 50 MCG/ACT nasal sprayIndication s:Seasonal allergies USE 1 TO 2 SPRAYS IN EACH NOSTRIL ONCE DAILY NEEDED FOR ALLERGY 48 g 3 3 Active nicotine polacrilex (Nicorette) 4 MG gumIndications: Tobacco dependence Chew 1 each (4 mg) if needed in the morning, at noon, in the evening, and at bedtime for smoking cessation. 100 each 4 Active ibuprofen 600 MG tabletIndicatio ns:Chest wall pain TAKE 1 TABLET BY MOUTH THREE TIMES DAILY IN THE MORNING, AT NOON, AND AT BEDTIME FOR PAIN 60 tablet 1 4 Active Diclofenac Sodium 1 % gelIndications: Pain of right heel Apply 1 Application topically every 12 (twelve) hours if needed (apply on affected area). 150 g 5 Active acetaminophen (Tylenol Extra Strength) 500 MG tabletIndicatio ns:Pain of right heel Take 2 tablets (1,000 mg) by mouth every 8 (eight) hours if needed for mild pain for up to 10 days. 30 tablet 5 12/08/19 25 Active Active Problems Problem Noted Date Diagnosed Date Right leg swelling 11/27/2024 Assessment & Plan (11/27/2024 7:35 PM EDT): And lightheaded at this time of the day I am not able to book an LETICIA appointment for Doppler ultrasound for his leg to rule out a DVT I advised for him to go immediately to the emergency room, tomorrow status chest will be done to see if he was able to get the ultrasound if not order for stat ultrasound is in the system for him to go as soon as possible Pain of right heel 11/27/2024 Opioid dependence 11/27/2024 Assessment & Plan (11/27/2024 7:37 PM EDT): CRS referral done today, tomorrow status check will be done to see if anybody reach out to him and offer support regarding this PTSD (post-traumatic stress disorder) 02/18/2023 Assessment & Plan (02/18/2023 11:09 AM EDT): Assessment: Ministerio was engaged with active reflective listening and open-ended questions. Assessed symptoms, risks, and social supports with direct questions. Discussed current symptoms intensity and frequency. Emotions were normalized and validated. He was not myla to identify any coping mechanisms or protective factors. Provided psychoeducation around Relaxation techniques. Discussed OP therapy and medication Management he agreed to both referrals. Provided education around integrated medicine and the options of follow up BE's as needed. Provided contact information should questions or concerns arise. Plan: Ministerio will engage in effective coping mechanisms provided and will be referred to Ind. Therapy and Medication Management. Patient with lash backs, nightmares, avoidance of places and topic, self blame, insomnia, trouble with concentration, fearfulness, anger, lack of interest. He denies SI, HI, AVH or self-harm at this time. He lives alone, renting a room. Started working 2 weeks ago. He witness his best friend from a heart attack. Patient will benefit from Ind. Therapy and Medication Management. At this time Ministerio Osorio meets criteria for Visit Diagnoses: Problem List Items Addressed This Visit Other PTSD (post-traumatic stress disorder) Patient ready to address current needs Yes Strengths include willing to seek treatment PLAN: 1. Follow up with [facility]: Not recommended for follow-up 2. Patient goal is to manage his trauma by engaging in OP services. 3. Behavioral Recommendations a. Ind. Therapy b. Med. Management c. Use of coping skills provided. Stress 02/17/2023 Assessment & Plan (02/17/2023 8:28 PM EDT): -Probable diagnoses include anxiety and PTSD, BE completed after appt today with Monisha Patricio. Please see documentation for further details -Plan to refer to OP therapy and med management Primary osteoarthritis of right knee 01/12/2023 Assessment & Plan (01/12/2023 9:13 AM EDT): It seems to have recurrent pain. Use Ibuprofen/tylenol prn Elevate leg at 30 degrees, apply ice to affected area. Use knee immobilizer for ambulation, avoid negotiating stairs. I rx cane for ambulation Refer to orthopedics at [facility], according to patient they have all his info MRIs etc. Patient will bring Xrays taken this weekend at [facility] Coccygeal pain 01/04/2023 Assessment & Plan (01/05/2023 4:33 PM EDT): I advise to use donut pillow and continue with PRN medications Hemorrhoids 02/05/2022 Chronic bilateral low back pain with bilateral s ciatica 02/05/2022 Assessment & Plan (01/05/2023 4:33 PM EDT): Apply heat on affected are Seasonal allergies 02/05/2022 Resolved Problems Problem Noted Date Diagnosed Date Resolved Date Knee effusion, right 01/12/2023 023 Assessment & Plan (01/12/2023 9:14 AM EDT): R o bursitis Rx as OA knee, may need PT Palpitations 01/04/2023 02/17/2023 Assessment & Plan (01/05/2023 4:34 PM EDT): Likely anxiety I ordered TSH Report back if episode repeats F/u with PCP Encounters Date Type Department Care Team Description 12/04/2024 Telephone [facility] MED[facility]INE [address] [place] [phone] Marie España MA 12/01/2024 Telephone [facility] [address] [place] [phone] Lela Meek MD Follow-up 11/30/2024 Telephone [facility] [address] [place], [place] [phone] Lela Meek MD 11/28/2024 Telephone [facility] [address] [place] [phone] Lynn Tsang RN 11/28/2024 Telephone [facility] [address] [place] [address] [phone] Marie España MA 11/27/2024 6:40 PM EDT Office Visit [facility] [address] [place] [phone] Lela Meek MD Right leg swelling (Primary Dx); Pain of right heel; Opioid dependence with opioid-induced disorder (CMS/HCC) 11/27/2024 Orders Only [facility] External Provider, [facility] 11/27/2024 Telephone [facility] [address] [place] [phone] Lela Meek MD Tracheostomy Tube Check 11/01/2024 Telephone [facility] [address] [place] [address] [phone] Stacey Pond FNP No Show 10/26/2024 Telephone [facility] [address], [place] [phone] Stacey Pond FNP Chart Prep 10/18/2024 Population Health Risk Score [facility] () Department [address] [place] [phone] Provider, Population Health Generic 09/28/2024 Telephone [facility] [address], [place] [phone] Stacey Pond FNP September recall from Last 3 Months Immunizations Name Administration Dates Next Due Influenza injectable quadriv alent IIV4 with preservative 2016 Influenza injectable quadrivalent preservative f ree 04/17/2018 Td (adult), 5 Lf tetanus tox oid, preservative free, adsorbed 04/05/2013 Tdap 2016 Social History Tobacco Use Types Packs/Day Years Used Date Smoking Tobacco: Every Day Cigarettes Passive Smoke Exposure: Current Smokeless Tobacco: Never Tobacco Cessation:Ready to Q uit: Not Asked; Counseling Given: Not Answered Alcohol Use Standard Drinks/Week Comments Yes 0 [...] not to disclose 2021 10:25 AM EDT Last Filed Vital Signs Vital Sign Reading Time Taken Comments Blood Pressure 149/78 11/27/2024 6:41 PM EDT Pulse 101 11/27/2024 6:41 PM EDT Temperature 36.2 ??C (97.1 ??F) 11/27/2024 6:41 PM ED T Respiratory Rate 14 11/27/2024 6:41 PM EDT Oxygen Saturation 99% 11/27/2024 6:41 PM EDT Inhaled Oxygen Concentration - - Weight 79 kg (174 lb 3.2 oz) 11/27/2024 6:41 PM EDT Height 165.1 cm (5' 5 ) 08/03/2023 3:15 PM EST Body Mass Index 28.99 08/03/2023 3:15 PM EST Plan of Treatment Upcoming Encounters Date Type Department Care Team (Late st Contact Info) Description 12/05/2024 1:00 PM EDT Office Visit [facility] [address] [place] [phone] Georgiana Mobley RN [address] [place] [address] 12/05/2024 3:00 PM EDT Office Visit [facility] [address] [place] [address] Sonny Joseph MD [address] [place] [address] 02/14/2025 10:00 AM EDT Office Visit [facility] [address] [place], [place] [phone] Stacey Pond, [employer] [address] [place] [address] Health Maintenance Due Date Last Done Comments Alcohol/Substance Use Screening 1995 Family Planning (PISQ) 1998 Hepatitis B Vaccines (1 of 3 - 19+ 3-dose series) 2002 Pneumococcal Vaccine: Pediatrics (0 to 5 Years) and At-Risk Patients (6 to 49) Years) (1 of 2 - PCV) 2002 Depression Screening 01/05/2024 01/04/2023, 01/04/2023 SDOH Screening 01/05/2024 01/04/2023 COVID-19 Vaccine (4 - 2023-2 5 season) 2024 07/16/2021, 12/11/2020, 11/13/2020 Influenza Vaccine (#1) 2024 8, 2016 Tobacco Screening 08/03/2024 08/03/2023 DTaP/Tdap/Td Vaccines (2 - T d or Tdap) 2026 2016, 04/05/2013 Lipid Panel 08/07/2028 08/07/2023, 02/11/2022 Zoster Vaccines (1 of 2) 2033 RSV Patients and Patients Aged 60 years or older (1 - 1-dose 75+ series) 2058 HIV Screening Completed 01/04/2023, 02/04/2022 Hepatitis C Screening Completed 01/04/2023 , 02/04/2022 HIB Vaccines Aged Out No longer eligi ble based on patient's age to complete this topic HPV Vaccines Aged Out No longer eligi ble based on patient's age to complete this topic Hepatitis A Vaccines Aged Out No long er eligible based on patient's age to complete this topic IPV Vaccines Aged Out No longer eligi ble based on patient's age to complete this topic Meningococcal Vaccine Aged Out No maximo pablito eligible based on patient's age to complete this topic RSV under 20 months Aged Out No longe r eligible based on patient's age to complete this topic Rotavirus Vaccines Aged Out No longer eligible based on patient's age to complete this topic Procedures Procedure Name Priority Date/Time Associated Diagnosis Comments US VENOUS DUPLEX LE RT Routine 12/04/2024 11:26 AM EDT XR FOOT 3+ VIEWS RIGHT Routine 11/28/2024 12:05 AM EDT LIPID PANEL, STANDARD Routine 08/07/2023 7:28 AM EST Healthcare maintenance HEPATITIS C AB W/REFL TO HCV RNA, QN, PCR Routine 01/04/2023 11:07 AM EDT Unprotected sexual intercourse HIV 1/2 ANTIGEN/ANTIBODY, FOURTH GENERATION W/RFL Routine 01/04/2023 11:07 AM EDT Unprotected sexual intercourse from Last 3 Months or Most Recently Relevant to Health Maintenance Results * US VENOUS DUPLEX LE RT (12/04/2024 11:26 AM EDT) Anatomical Region Laterality Modality Abdomen Ultrasound 12/04/2024 11:2 6 AM EDT Narrative 12/04/2024 11:48 AM EDT ? [facility] ?[address] [facility] ? [place] [address] ? Ultrasound Report ? Signed ? Patient: Fabian Devon,Ministerio ?MR#: M ?? [id number] ? : 1985 ?Acct:[id number] ? Age/Sex: 39 / M ?ADM Date: 05/12/25 ? Loc: HO.HMGCX ? Attending Dr: Lela Pagan MD ? Ordering Physician: Lela Meek MD ?? Date of Service: 12/04/24 ?? Procedure(s): US venous duplex LE RT ?? Accession Number(s): [id number] ? cc: Lela Meek MD; Stacey Pond ? EXAMINATION: ??US LOWER EXTREMITY VEINS LIMITED FOLLOW UP RIGHT ? HISTORY: RIGHT LEG SWELLING ? COMPARISON: There are no prior studies for comparison. ? TECHNIQUE: ??Duplex and color Doppler sonographic examination of the ?? deep venous system of the right lower extremity was performed. ? FINDINGS: ? The common femoral, superficial femoral, and popliteal veins are patent ?? demonstrating normal compressibility, spontaneous flow, and ?? augmentation. ??There is a normal color and spectral Doppler waveform ?? appearance of the visualized deep venous system above the knee. ??The ?? posterior tibial and peroneal veins are patent. ? / venous duplex LE RT ?? IMPRESSION: ?? No evidence of acute DVT in the right lower extremity. ? Electronically signed by: ??Cory Portillo MD ??12/04/2024 11:45 AM EDT ? Dictated By: ?Cory Portillo MD ? Signed By: ?<Electronically signed by Cory Portillo MD in OV> ?12/04/24 1145 ? DD/ 1126 ? TD/TT: 12/04/24 1131 ? [employer]: ? Procedure Note Blanca, Image - 12/04/2024 [facility] [place] [address] Ultrasound Report Signed Patient: Santosh Cevallos#: M [id number] : 1985Acct:[id number] Age/Sex: 39 / MADM Date: 12/04/24 Loc: HO.HMGCX Attending Dr: Lela Pagan MD Ordering Physician: Lela Meek MD Date of Service: 12/04/24 Procedure(s): US venous duplex LE RT Accession Number(s): [id number] cc: Lela Meek MD; Stacey Pond EXAMINATION: US LOWER EXTREMITY VEINS LIMITED FOLLOW UP RIGHT HISTORY: RIGHT LEG SWELLING COMPARISON: There are no prior studies for comparison. TECHNIQUE: Duplex and color Doppler sonographic examination of the deep venous system of the right lower extremity was performed. FINDINGS: The common femoral, superficial femoral, and popliteal veins are patent demonstrating normal compressibility, spontaneous flow, and augmentation. There is a normal color and spectral Doppler waveform appearance of the visualized deep venous system above the knee. The posterior tibial and peroneal veins are patent. US/US venous duplex LE RT IMPRESSION: No evidence of acute DVT in the right lower extremity. Electronically signed by: Cory Portillo MD 12/04/2024 11:45 AM EDT Dictated By: Cory Portillo MD Signed By: <Electronically signed by Cory Portillo MD in OV> 12/04/24 1145 DD/ 1126 TD/TT: 12/04/24 1131 [employer]: us Lela Pagan MD IMG US PROCEDURES Fin al Result * XR Foot 3+ Views Right (11/28/2024 12:05 AM EDT) Anatomical Region Laterality Modality Lower Extremities, Foot Right Radiogra phic Imaging 11/28/2024 12:0 5 AM EDT Narrative 11/28/2024 12:07 AM EDT ? [facility] ?[address] ?[place] [address] ?XRay Report ? Signed ? Patient: Fabian Devon,Ministerio ?MR#: M ?? [id number] ? : 1985 ?Acct:[id number] ? Age/Sex: 39 / M ?ADM Date: 05/05/25 ? Loc: HO.ED ? Attending Dr: ? Ordering Physician: Generic ED Physician ?? Date of Service: 11/27/24 ?? Procedure(s): XR foot RT min 3V ?? Accession Number(s): [id number] ? cc: Generic ED Physician; [facility] ? CLINICAL HISTORY: injury pain swelling ? 3 view right foot ? Comparison: None ? Findings: ?? No fractures or dislocations. ?? Small posterior calcaneal spur. No erosion. ?? No ankle effusion. ?? No radiopaque foreign body. ? IMPRESSION: ?? Lateral ankle and foot soft tissue swelling. No soft tissue gas or ?? fracture. ? This document has been electronically signed by: Li Gomez, ?? on 11/28/2024 00:05:42 ? Dictated By: ?Li Gomez MD ? Signed By: ?<Electronically signed by Li Gomez MD in OV> ?11/28/24 0006 ? DD/ 0005 ? TD/TT: 11/28/24 0005 ? [employer]: ? Procedure Note Obedrobertimanvel, Image - 11/28/2024 [place] [address] XRay Report Signed Patient: Santosh Cevallos#: M [id number] : 1985Acct:[id number] Age/Sex: 39 / MADM Date: 11/27/24 Loc: HO.ED Attending Dr: Ordering Physician: Generic ED Physician Date of Service: 11/27/24 Procedure(s): XR foot RT min 3V Accession Number(s): [id number] cc: Generic ED Physician; [facility] CLINICAL HISTORY: injury pain swelling 3 view right foot Comparison: None Findings: No fractures or dislocations. Small posterior calcaneal spur. No erosion. No ankle effusion. No radiopaque foreign body. IMPRESSION: Lateral ankle and foot soft tissue swelling. No soft tissue gas or fracture. This document has been electronically signed by: Li Gomez MD on 11/28/2024 00:05:42 Dictated By: Li Gomez MD Signed By: <Electronically signed by Li Gomez MD in OV> 11/28/24 0006 DD/ 0005 TD/TT: 11/28/24 0005 [employer]: [facility] External Provider IMG XR PROCEDURES Edited Result - Final * (ABNORMAL) Lipid Panel, Standard (08/07/2023 7:28 AM EST) Triglycerides 109 <150 mg/dL [facility] Comment:Desirable Triglyceri de: less than 150 mg/dLBorderline High Triglyceride 150-199 mg/dLHigh Triglyceride: 200-499 mg/dLVery High Triglyceride: greater than or equal to 5OO mg/dL Cholesterol 146 <200 mg/dL [facility] Comment:Desirable Cholestero l: less than 200 mg/dLBorderline High Cholesterol: 200-239 mg/dLHigh Cholesterol: greater than 239 mg/dL LDL Cholesterol Calculated 86 <100 mg/dL [facility] Comment:Desirable LDL: less than 100 mg/dLNear Optimal/Above Optimal LDL: 110- 129 mg/dLBorderline High LDL: 130-159 mg/dLHigh LDL: 160-189 mg/dLVery High LDL: greater than or equal to 190 mg/dL HDL Cholesterol 39(L) >40 mg/dL [facility] Comment:Desirable HDL: great er than 40 mg/dL Note: This HDL assay may give artificially low results in patients with liver disease. Blood Venous blood specimen / Unknown 08/07/2023 7:28 AM EST 08/07/2023 7:28 AM EST Stacey Pond [facility] BLOOD ORDERABLES Final Res ult [facility] [address] [place] [phone] * Hepatitis C Antibody with Reflex to HCV, RNA, Quantitative, Real-Time PCR (01/04/2023 11:07 AM EDT) Hepatitis C Antibody NON-REACT RAMESH NON-REACT RAMESH [employer] Index 0.13 <1.00 [facility] Comment: HCV antibody was non-reactive. There is no laboratory evidence of HCV infection. In most cases, no further action is required. However, if recent HCV exposure is suspected, a test for HCV RNA (test code 88331) is suggested. For additional information please refer to http://education.Linkage/faq/JCT23l1 (This link is being provided for informational/ educational purposes only.) Blood Venous blood specimen / Unknown 01/04/2023 11:07 AM EDT 01/04/2023 11:07 AM EDT Narrative [facility] - 01/08/2023 6:43 PM EDT FASTING:YES FASTING: YES Lela Pagan MD LAB BLOOD ORDERABLES Final Result Performing Organization Address City/[facility]/ZIP Co de Phone Number [address], [place] [address] [facility] [address] [place] [address] * HIV-1/2 Antigen and Antibodies, Fourth Generation, with Reflexes (01/04/2023 11:07 AM EDT) [facility] HIV Antigen/Antibody, 4th Generation NON-REAC TIVE NON-REAC TIVE [employer] [place] [facility] [facility] Comment: HIV-1 antigen and HIV-1/HIV-2 antibodies were not detected. There is no laboratory evidence of HIV infection. PLEASE NOTE: This information has been disclosed to you from records whose confidentiality may be protected by state law. ??If your state requires such protection, then the state law prohibits you from making any further disclosure of the information without the specific written consent of the person to whom it pertains, or as otherwise permitted by law. A general authorization for the release of medical or other information is NOT sufficient for this purpose. ?? For additional information please refer to http://education.ContentDJ.Jet/faq/EBD598 (This link is being provided for informational/ educational purposes only.) The performance of this assay has not been clinically validated in patients less than 2 years old. Blood Venous blood specimen / Unknown 01/04/2023 11:07 AM EDT 01/04/2023 11:07 AM EDT Narrative [facility] - 01/08/2023 6:43 PM EDT FASTING:YES FASTING: YES Lela Pagan MD LAB BLOOD ORDERABLES Final Result [address], [place] [address] [facility] [address] [place] [phone] from Last 3 Months or Most Recently Relevant to Health Maintenance Insurance [facility] C3 Care Teams Greige Goods Inspector Relationship Specialty Start Date End Date Stacey Pond FNP [address] [place] [address] PCP - General Family Medicine 02/04/22
--- OUTSIDE RECORDS SUMMARY | 2024-12-04 12:04 | XMS_ITS | Encounter Summary ---
Author Organization [employer] Address [address] [place] [address] Care Team Providers Care Lactation Specialist Name Role Phone Stacey Pond [employer]ION Primary Care Provider [phone] Reason for Visit * Reason Onset Date Comments Follow-up 12/01/2024 Encounter Details Date Type Department Care Team ([facility] st Contact Info) Description 12/01/2024 Telephone [facility] [address] [place] [address] Lela Meek MD [address] [place] [address] Follow-up Social History Tobacco Use Types Packs/Day Years [...] encounter Miscellaneous Notes * Telephone Encounter - Haley Rahman RN - 12/01/2024 12:22 PM EDT Call returned to patient. Advised patient that Dr. Paz would like him to get ultrasound still.Phone number provided for [facility] ([phone]). Patient advised to call and re-schedule ultrasound. Patient verbalizes understanding and agreement with plan of care at [place] [id number] * Telephone Encounter - Haley Rahman RN - 12/01/2024 11:12 AM EDT Call placed to patient for status check. Patient reports his leg pain is improving every day. He reports he thought he had the ultrasound. Per chart review, no record of this. Patient did have x-ray performed. Patient reports he was unaware he had an ultrasound appt yesterday. He would like to know if he canstill have it performed as he has a little pain in his heel. Advised that will clarify with ordering provider if she would still like the ultrasound to be done. Patient verbalizes understanding and agreement with plan of care at [place] [id number] * Telephone Encounter - Lela Pagan MD - 12/01/2024 10:50 AM EDT Please call patient for status check, he was supposed to have a venous US for his leg to r/o DVT but it was not done, thank you documented in this encounter Plan of Treatment Upcoming Encounters Date Type Department Care Team (Late st Contact Info) Description 12/05/2024 1:00 PM EDT Office Visit [facility] [address] [place] [phone] Georgiana Mobley, JANAK [address] [place] [phone] 12/05/2024 3:00 PM EDT Office Visit [address] [address] Sonny Joseph MD [address] [place] [phone] 02/14/2025 10:00 AM EDT Office Visit [address] [address] Stacey Pond FNP [address] [place] [phone] documented as of this encounter Visit Diagnoses Not on filedocumented in this encounter Additional Health Concerns Assessment Noted Time PHQ-9 Depression Total Score: 18 023 10:22 AM EDT documented as of this encounter Care Teams Lactation Specialist Relationship Specialty Start Date End Date Stacey Pond FNP [address] [place] [phone] PCP - General Family Medicine 02/04/22 documented as of this encounter
== END 2024-12-04 11:16 | disposition home or self-care (01) ==
LOC: HO.HMGCX 11:15
PROVIDERS: PCP Registered Nurse; Visit Provider Internal Medicine
DX: R79.89 Other specified abnormal findings of blood chemistry (principal); R60.0 Localized edema
CPT/HCPCS: 93971

== ENCOUNTER → 2024-12-04 11:18 | Outpatient (BNV) | payer MEDICAID, SELFPAY | PROVIDERS: PCP Registered Nurse; Visit Provider Radiology Diagnostic Radiology | DX: R22.41 Localized swelling, mass and lump, right lower limb (principal) | CPT/HCPCS: 93971 ==

== ENCOUNTER 2025-02-07 21:04 | Emergency (ER) | payer MEDICAID, SELFPAY ==
[2025-02-07 21:10] VITALS: BP 116/66; PULSE 102; RESP 16; TEMP 36.2; O2SAT 98; BMI 27.3
--- NOTE | 2025-02-07 21:13 | ECG_ITS ---
Test Reason : QTC Blood Pressure : */* mmHG Vent. Rate : 78 BPM Atrial Rate : 78 BPM P-R Int : 144 ms QRS Dur : 68 ms QT Int : 394 ms P-R-T Axes : 76 -29 18 degrees QTcB Int : 449 ms Normal sinus rhythm Normal ECG When compared with ECG of 12-Jun-2021 07:35, QRS axis Shifted left Nonspecific T wave abnormality now evident in Lateral leads QT has lengthened Referred By: Generic ED Physician Electronically Signed By: KRISTINA PEOPLES
[2025-02-07 21:50] LABS: MANUAL DIFF FLAG NO
[2025-02-07 21:54] LABS: Hematocrit 37.2 % (42.0-52.0); Hemoglobin 12.3 g/dl (14.0-18.0); Imm Gran Abs Auto 0.01 X10*3/uL (0.00-0.03); Imm Gran Pct Auto 0.2 % (0.0-0.4); Lymphocytes Absolute Auto 2.5 X10*3/uL (1.2-4.9); Mean Corpuscular HGB Conc 33.1 g/dl (31.0-36.0); Mean Corpuscular Hemoglobin 30.0 pg (27.0-33.0); Mean Corpuscular Volume 90.7 fL (80.0-98.0); NRBC Abs Auto 0.000 X10*3/uL (0.0-0.012); NRBC Pct Auto 0.0 /100WBC (0.0-0.2); Platelet Count 238 X10*3/uL (160-400); Red Blood Count 4.10 X10*6/uL (4.60-5.80); White Blood Count 6.6 X10*3/uL (4.8-10.8)
[2025-02-07 22:05] LABS: Anion Gap 12 (12-20); Blood Urea Nitrogen 15 mg/dL (9-16); Calcium 8.6 mg/dL (8.4-10.2); Carbon Dioxide 24 mmol/L (22-29); Chloride 111 mmol/L (96-108); Creatinine Clr Calc Pharmacy 85.0; Estimated Glomerular Filt Rate > 60; Potassium 3.7 mmol/L (3.3-5.1); Salicylate < 5.0 mg/dL (15-30); Sodium 143 mmol/L (135-145)
[2025-02-07 22:27] LABS: Resp Syncy Virus RNA Qual PCR NEGATIVE (Negative); SARS COV2 PCR INHOUSE NEGATIVE (Negative)
== END 2025-02-08 02:44 | disposition left against medical advice (07) ==
PROVIDERS: Emergency Provider Emergency Medicine; PCP Registered Nurse
DX: F14.90 Cocaine use, unspecified, uncomplicated (principal); R94.31 Abnormal electrocardiogram [ECG] [EKG]; Z71.51 Drug abuse counseling and surveillance of drug abuser; Z79.899 Other long term (current) drug therapy; Z03.818 Encounter for observation for suspected exposure to other biological agents ruled out
CPT/HCPCS: 36415; 80048; 80179; 80307; 85025; 87637; 93005; 99281; 99283

== ENCOUNTER → 2025-02-07 21:13 | Outpatient (BNV) | payer MEDICAID, SELFPAY | PROVIDERS: Emergency Provider Emergency Medicine; PCP Registered Nurse; Visit Provider Internal Medicine | DX: Z13.6 Encounter for screening for cardiovascular disorders (principal) | CPT/HCPCS: 93010 ==

== ENCOUNTER 2025-02-23 06:19 | Emergency (ER) | payer MEDICAID, SELFPAY ==
[2025-02-23 06:34] VITALS: BP 133/80; PULSE 83; RESP 16; TEMP 37; O2SAT 98; BMI 27.4
--- OUTSIDE RECORDS SUMMARY | 2025-02-23 06:56 | XMS_ITS | Clinical Summary ---
Author Organization [employer] Address [address] [facility] 7 [place] [address] Care Team Providers Care Animal Geneticist Name Role Phone AixaStacey ramos [place] Primary Care Provider [phone] Allergies No known active allergies Medications * This document contains information received from the source organization and may not represent a complete record from that organization. albuterol 108 (90 Base) MCG/ACT inhaler inhale 2 puff by inhalation route every 4 - 6 hours as needed Active ascorbid acid ER (Vitamin C) 500 MG ER tablet Take one tablet with your iron supplement and a full glass of water Active cetirizine (ZyrTEC) 10 MG tablet take 1 tablet by oral route every day as needed for allergies Active diphenhydrAMINE (BENADryl) 25 MG capsule take 1-2 Capsule by oral route at bedtime prn itching Active ferrous sulfate 325 (65 Fe) MG tablet take1 tablet by oral route every day with a full glass of water Active hydrocortisone (Anusol-HC) 2.5 % rectal cream apply by topical route 4 times every day to the affected area(s) Active ketoconazole (NIZOral) 2 % shampoo apply by topical route every day to the affected area(s), lather, leave in place for 5 minutes, and then rinse off with water. Apply for 3 days. Active mupirocin (Bactroban) 2 % ointment apply pea sized amount by topical route on each nostril twice a day for 5 days 022 Active sodium chloride (Deep Sea Nasal [place]) 0.65 % nasal sprayIndications: Seasonal allergies USE 1-2 SPRAYS IN EACH NOSTRIL EVERY 2 TO 3 HOURS NEEDED FOR NASAL CONGESTION 44 mL 1 023 Active fluticasone (Flonase) 50 MCG/ACT nasal sprayIndications: Seasonal allergies USE 1 TO 2 SPRAYS IN EACH NOSTRIL ONCE DAILY NEEDED FOR ALLERGY 48 g 3 023 Active nicotine polacrilex (Nicorette) 4 MG gumIndications:To bacco dependence Chew 1 each (4 mg) if needed in the morning, at noon, in the evening, and at bedtime for smoking cessation. 100 each 024 Active naloxone (Narcan) 4 mg/0.1 mL nasal spray Administer 1 spray (4 mg) into affected nostril(s) if needed for opioid reversal. May repeat every 2-3 minutes if needed, alternating nostrils, until medical assistance becomes available. 2 each 3 025 2025 Active ibuprofen 600 MG tabletIndications :Pain TAKE 1 TABLET BY MOUTH THREE TIMES DAILY IN THE MORNING, AT NOON, AND AT BEDTIME FOR PAIN 60 tablet 1 025 Active Diclofenac Sodium 1 % gelIndications:Pr imary osteoarthritis of right knee Apply 1 Application topically every 12 (twelve) hours if needed (apply on affected area). 150 g 025 Active Diclofenac Sodium 1 % gelIndications:Pa in of right heel Apply 1 Application topically every 12 (twelve) hours if needed (apply on affected area). 150 g 025 2024 Discontinued(R eorder (will not trigger notification to Pharmacy)) Active Problems Problem Noted Date Diagnosed Date Elevated blood pressure reading 02/15/2025 Assessment & Plan (02/15/2025 11:01 AM EDT): - Elevated in office at 142/88 mmHg on 02/14/2025 without known history of hypertension. Denies any cardiac symptoms. Plan: Will blood pressure monitor provided. Reviewed goal blood pressure ranges. Advised to follow-up if above target. Precautions reviewed. Right leg swelling 11/27/2024 Assessment & Plan [...] 11/27/2024 Opioid dependence 11/27/2024 Assessment & Plan (02/15/2025 11:01 AM EDT): - Continue following with methadone clinic. Reports cravings and OUD well- controlled with current therapy. Assessment & Plan (12/11/2024 10:53 AM EDT): - Spoke with pt about engaging with CRS services - warm hand off provided to OBAT team - Narcan sent to pharmacy, reviewed use Assessment & Plan (11/27/2024 7:37 PM EDT): [...] Therapy and Medication Management. At this time iMnisterio Osorio meets criteria for Visit Diagnoses: Problem List Items Addressed This Visit Other PTSD (post-traumatic stress disorder) Patient ready to address current needs Yes Strengths include willing to seek treatment PLAN: 1. Follow up with [facility]: Not recommended for follow-up 2. Patient goal [...] of right knee 01/12/2023 Assessment & Plan (02/15/2025 11:02 AM EDT): Diclofenac refill sent to pharmacy Assessment & Plan (01/12/2023 9:13 AM EDT): It seems to have recurrent pain. Use Ibuprofen/tylenol prn Elevate leg at 30 degrees, apply ice to affected area. Use knee immobilizer for ambulation, avoid negotiating stairs. I rx cane for ambulation Refer to orthopedics at [facility], according to patient they have all his info MRIs etc. Patient will bring Xrays taken this weekend at [facility] Coccygeal pain 01/04/2023 Assessment & Plan (01/05/2023 [...] if episode repeats F/u with PCP Encounters * This document contains information received from the source organization and may not represent a complete record from that organization. Date Type Department Care Team Description 02/14/2025 10:00 AM EDT Office Visit [facility] [address] [place] [phone] Stacey Pond FNP Opioid dependence with opioid-induced disorder (CMS/HCC) (Primary Dx); Elevated blood pressure reading; Primary osteoarthritis of right knee 02/14/2025 Travel 02/13/2025 Telephone [facility] [address] [place] [phone] Stacey Pond FNP CHART PREP 02/13/2025 Travel 01/04/2025 Refill [facility] [address] [place] [phone] Lynn Tsang RN Opioid use disorder (Primary Dx) 12/17/2024 Refill [facility] [address] [place] [phone] Stacey Pond FNP Pain (Primary Dx); Chest wall pain 12/15/2024 Refill [facility] [address] [place] [address] Lynn Tsang, JANAK Opioid use disorder 12/13/2024 Refill [facility] [address] [place] [address] [phone] Lynn Tsang, RN Opioid use disorder 12/11/2024 11:15 AM EDT Office Visit [facility] [address] [place] [address] Toñito Burns MD Opioid use disorder (Primary Dx) 12/11/2024 10:15 AM EDT Office Visit [facility] [address] [place] [address] Stacey Pond FNP Opioid dependence with opioid-induced disorder (CMS/HCC) (Primary Dx); Healthcare maintenance 12/11/2024 Patient Outreach [facility] [address] [place] [phone] Stacey Pond FNP Care Coordination ([facility] outreach for SDOH food needs-referral completed /) 12/11/2024 Travel 12/07/2024 Telephone [facility] [address] [place] [address] Stacey Pond FNP Chart Prep 12/07/2024 Telephone [facility] [address] [address] Daisy Berman RN Results 12/07/2024 Results Follow-Up [address] [address] Lela Meek MD US VENOUS DUPLEX LE RT 12/06/2024 Travel 12/05/2024 Telephone [facility] [address] [place] [phone] Stacey Pond FNP 12/04/2024 Telephone [facility] [address] [place] [phone] Marie España PA 12/01/[address] [address] Lela Meek MD Follow-up 11/30/2024 Telephone [facility] [address] [place] [phone] Lela Meek MD 11/28/2024 Telephone [facility] [address] [place] [phone] Lynn Tsang, JANAK 11/28/[address] [address] Marie España [place] 11/27/2024 6:40 PM EDT Office Visit [facility] [address] [address] Lela Meek MD Right leg swelling (Primary Dx); Pain of right heel; Opioid dependence with opioid-induced disorder (CMS/HCC) 11/27/2024 Orders Only [facility] External Provider, [facility] 11/27/2024 Telephone [facility] [address] [place] [address] Lela Meek MD Tracheostomy Tube Check from Last 3 Months Immunizations Immunization Administration Dates Next Due Influenza injectable quadriv [...] Answer Date Recorded Patient Health Questionnaire-9 Score 15 12/11/2024 Patient Health Questionnaire-9 Score 15 12/11/2024 Last PHQ-9: Questionnaire Data Not on file 0 12/11/2024 Housing Stability Answer Date Recorded What is your housing situation today? I have housing today, but I am worried about losing housing in the future 12/11/[address] you li ve. Do you have problems with any of the following? None of the above 12/11/2024 Food Insecurity Answer Date Recorded Within the past 12 months, y ou worried that your food would run out before you got money to buy more: Often true 12/11/2024 Within the past 12 months,th e food you bought just didn't last and you didn't have enough money to get more: Never True Transportation Answer Date Recorded In the past 12 months, has l ack of transportation kept you from medical appts, meetings, work or from getting things needed for daily living? I am not sure 12/11/2024 Utilities Answer Date Recorded In the past 12 months, has t he electric, gas, oil or water company threatened to shut off services in your home? I am not sure 12/11/2024 Depression Answer Date Recorded Patient Health Questionnaire-2 Score 2 12/11/2024 Internet Access Answer Date Recorded Internet Access Q1 No 12/11/2024 Internet Access Q2 I cannot afford it 12/11/2024 Sex and Gender Information Value Date Recorded Sex Assigned at Male 05/25/2022 10:25 AM EDT Legal Sex Male 10:25 AM EDT Gender Identity Male 02/17/2023 10:32 AM EDT Sexual Orientation Choose not to disclose 2021 10:25 AM EDT Last Filed Vital Signs Vital Sign Reading Time Taken Comments Blood Pressure 142/88 02/14/2025 10:16 AM EDT Pulse 70 02/14/2025 10:16 AM EDT Temperature 35.9 C (96.6 F) 02/14/2025 10:16 AM EDT Respiratory Rate 20 02/14/2025 10:16 AM EDT Oxygen Saturation 98% 02/14/2025 10:16 AM EDT Inhaled Oxygen Concentration - - Weight 73.5 kg (162 lb) 02/14/2025 10:16 AM EDT Height 165.1 cm (5' 5 ) 02/14/2025 10:16 AM EDT Body Mass Index 26.96 02/14/2025 10:16 AM EDT Plan of Treatment Health Maintenance Due Date Last Done Comments Family Planning (PISQ) 1998 HPV Vaccines (1 - Male 3-dos e series) 1998 Hepatitis B Vaccines (1 of 3 - 19+ 3-dose series) 2002 Pneumococcal Vaccine: Pediatrics (0 to 5 Years) and At-Risk Patients (6 to 49) Years (1 of 2 - PCV) 2002 COVID-19 Vaccine (4 - 2023-2 5 season) 2024 07/16/2021, 12/11/2020, 11/13/2020 Influenza Vaccine (#1) 2025 8, 2016 Depression Monitoring 06/13/2025 12/11/2024 , 12/11/2024 SDOH Screening 12/11/2025 12/11/2024 Alcohol/Substance Use Screening 02/14/2026 02/14/2025 Disability Screening 02/14/2026 02/14/2025 Tobacco Screening 02/14/2026 02/14/2025 DTaP/Tdap/Td Vaccines (2 - T d or [...] patient's age to complete this topic Meningococcal B Vaccine Aged Out No l onger eligible based on patient's age to complete this topic Meningococcal Vaccine Aged Out No maximo pablito eligible based on patient's age to complete this topic RSV under 20 months Aged Out No longe r eligible based on patient's age to complete this topic Rotavirus Vaccines Aged Out No longer eligible based on patient's age to complete this topic Goals Goal Patient Goal Type Associated Problems Recent Progress Patient-Stated? Author Start attending clinic and stop using crack and fentanyl. General Yes Yoselyn Cain RN Procedures Procedure Name Priority Date/Time Associated Diagnosis Comments SARS COV2/INFLUENZA A/B AND RSV RNA QL NAAT Routine 02/07/2025 9:44 PM EDT ETHANOL Routine 02/07/2025 9:43 PM EDT BASIC METABOLIC PANEL Routine 02/07/2025 9:43 PM EDT SALICYLATE Routine 02/07/2025 9:43 PM EDT CBC WITH AUTO DIFFERENTIAL Routine 02/07/2025 9:43 PM EDT POCT MAYELIN-14 URINE DRUG SCREEN Routine 12/11/2024 12:32 PM EDT Opioid use disorder US VENOUS DUPLEX LE RT Routine 12/04/2024 [...] Recently Relevant to Health Maintenance Results * SARS-CoV-2 RNA, Influenza A/B, and RSV RNA, Ql NAAT (02/07/2025 9:44 PM EDT) Influenza A PCR NEGATIVE Negative [facility] Influenza B PCR NEGATIVE Negative [facility] Resp Syncy Virus RNA Qual PCR NEGATIVE Negative [facility] SARS COV2 PCR NEGATIVE Negative [facility] Comment:All test results mus t be correlated with clinical findings.Negative results do not preclude SARS-CoV2, influenza Avirus, influenza B virus and/or RSV infectionand should not be used as the sole basis for treatment orother patient management decisions. Negative results must becombined with clinical observations, patient history, andepidemiological information.This test has not been evaluated for monitoring treatment ofinfection.This test has been authorized by the FDA under an EmergencyUse Authorization (EUA) for use by authorized laboratories.Testing performed on the [employer] GeneXpert utilizingreal-time RT-PCR.All SARS CoV2 and positive influenza A/B results arereported to [facility]. 02/07/2025 9:44 PM EDT 02/07/2025 9:48 PM EDT us Generic External Data Provider LAB MICROBIOLOGY - GENERAL ORDERABLES Final Result Performing Organization Address [facility]/ZIP Co de Phone Number [facility] [address] [place] [address] [phone] * Ethanol (02/07/2025 9:43 PM EDT) [facility] ETHANOL (MG/DL) IN SER/PLAS <10 mg/dL [facility] Comment:Serum/plasma ethanol results are to be used formedical/treatment purposes only. 02/07/2025 9:43 PM EDT 02/07/2025 9:48 PM EDT Generic External Data Provider LAB BLOOD ORDERAB LES Final Result Performing Organization Address [facility] Co de Phone Number [facility] [address] [place] [phone] * (ABNORMAL) CBC auto differential (02/07/2025 9:43 PM EDT) [facility] White Blood Count 6.6 4.8 - 10.8 X10*3/uL [facility] Red Blood Count 4.10(L) 4.60 - 5.80 X10*6/uL [facility] Hemoglobin 12.3(L) 14.0 - 18.0 g/dl [facility] Hematocrit 37.2(L) 42.0 - 52.0 % [facility] Mean Corpuscular Volume 90.7 80.0 - 98.0 fL [facility] Mean Corpuscular Hemoglobin 30.0 27.0 - 33.0 pg [facility] Mean Corpuscular HGB Conc 33.1 31.0 - 36.0 g/dl [facility] Red Cell Distribution Width 12.4 11.0 - 16.0 % [facility] Platelet Count 238 160 - 400 X10*3/uL [facility] Mean Platelet Volume 8.7(L) 9.4 - 12.4 fL [facility] Neutrophils Percent Auto 47.1 45 - 73 % [facility] Imm Gran Pct Auto 0.2 0.0 - 0.4 % [facility] Lymphocytes Percent Auto 37.7 20 - 40 % [facility] Monocytes Percent Auto 7.4 2 - 11 % [facility] Eosinophils Percent Auto 6.5(H) 0 - 4 % [facility] Basophils Percent Auto 1.1 0 - 2 % [facility] NRBC Pct Auto 0.0 0.0 - 0.2 /100WBC [facility] Neutrophils Absolute Auto 3.1 2.0 - 8.3 x10*3/uL [facility] Imm Gran Abs Auto 0.01 0.00 - 0.03 X10*3/uL [facility] Lymphocytes Absolute Auto 2.5 1.2 - 4.9 X10*3/uL [facility] Monocytes Absolute Auto 0.5 0.1 - 1.2 X10*3/uL [facility] Eosinophils Absolute Auto 0.4 0.0 - 0.4 X10*3/uL [facility] Basophils Absolute Auto 0.1 0.0 - 0.2 X10*3/uL [facility] NRBC Abs Auto 0.000 0.0 - 0.012 X10*3/uL [facility] 02/07/2025 9:43 PM EDT 02/07/2025 9:48 PM EDT us Generic External Data Provider LAB BLOOD ORDERAB LES Final Result Performing Organization Address City/[facility] Co de Phone Number [facility] [address] [place] [phone] * (ABNORMAL) Salicylate (02/07/2025 9:43 PM EDT) Salicylate <5.0(L) 15 - 30 mg/dL [facility] 02/07/2025 9:43 PM EDT 02/07/2025 9:48 PM EDT us Generic External Data Provider LAB BLOOD ORDERAB LES Final Result Performing Organization Address City/[facility]/ZIP Co de Phone Number [facility] [address] [place] [address] [phone] * (ABNORMAL) Basic Metabolic Panel (02/07/2025 9:43 PM EDT) Sodium 143 135 - 145 mmol/L [facility] Potassium 3.7 3.3 - 5.1 mmol/L [facility] Chloride 111(H) 96 - 108 mmol/L [facility] Carbon Dioxide 24 22 - 29 mmol/L [facility] Anion Gap 12 12 - 20 [facility] Urea Nitrogen (BUN) 15 9 - 16 mg/dL [facility] Creatinine, Serum 1.04 0.5 - 1.4 mg/dL [facility] Creatinine Clr Calc Pharmacy 85.0 [facility] Comment:eGFR (calculated fro m the MDRD study equation) and eCrCl(calculated from the Cockcroft-Gault equation) are based ondifferent parameters and may not yield comparable results.If eCrCl result is absurd, please check patient'sheight/weight. Estimated Glomerular Filt Rate >60 [facility] Comment:Chronic Kidney Disea se: Estimated GFR < 60 mL/min/[id number] Kidney Disease: Estimated GFR < 15 mL/min/1.73m2 Glucose 126(H) 60 - 115 mg/dL [facility] Calcium 8.6 8.4 - 10.2 mg/dL [facility] 02/07/2025 9:43 PM EDT 02/07/2025 9:48 PM EDT us Generic External Data Provider LAB BLOOD ORDERAB LES Final Result Performing Organization Address [facility] Co de Phone Number [facility] [address] [place] [address] [phone] * POCT MAYELIN-14 Urine Drug Screen (12/11/2024 12:32 PM EDT) Pathologist [facility] THC Positive Cocaine Screen, Urine Positive Opiate Screen, Urine Negative Methamphetamine Screen Urine Negative Amphetamine Screen, Urine Negative Benzodiazepines Screen, Urine Negative Barbiturate Screen, Urine Negative Methadone Screen, Urine Negative Buprenophine Screen, Urine Negative TCA, Urine Negative MDMA Urine Negative ng/mL Oxycodone Screen, Urine Negative Phencyclidine (PCP), Urine Negative Fentanyl, Urine Positive Urine Urine specimen obtained by clean catch procedure / Unknown 12/11/2024 12:32 PM EDT Toñito Burns MD POINT OF CARE TEST ENTER/EDIT OR DERABLES Final Result * US VENOUS DUPLEX LE RT (12/04/2024 11:26 AM EDT) Anatomical Region Laterality Modality Abdomen Ultrasound 12/04/2024 11:2 6 AM EDT Narrative 12/04/2024 11:48 AM EDT [facility] [address] [place] [address] [place] [address] Ultrasound Report Signed Patient: Ministerio Cevallos MR#: [id number] : 1985 Acct:[id number] Age/Sex: 39 / M ADM Date: 12/04/24 Loc: HO.HMGCX Attending Dr: Lela Pagan MD Ordering Physician: Lela Meek MD Date of Service: 12/04/24 Procedure(s): US venous duplex LE RT Accession Number(s): [id number] cc: Lela Meek MD; Stacey Pond EXAMINATION: [...] Cory Portillo MD 12/04/2024 11:45 AM EDT RP Dictated By: Cory Portillo MD Signed By: <Electronically signed by Cory Portillo MD in OV> 12/04/24 1145 DD/ 1126 TD/TT: 12/04/24 1131 Alteration Tailor Apprentice: Procedure Note Donotuseinterpreter, Image - 12/04/2024 [facility] [address] [place] [address] [place] [address] Ultrasound Report Signed Patient: Santosh Cevallos#: M [id number] : 1985Acct:[id number] Age/Sex: 39 / MADM Date: 12/04/24 [facility] Dr: Lela Pagan MD Ordering Physician: Lela Meek MD Date of Service: 12/04/24 Procedure(s): US venous duplex LE RT Accession Number(s): [id number] cc: Lela Meek MD; Stacey Pond EXAMINATION: [...] Cory Portillo MD 12/04/2024 11:45 AM EDT RP Dictated By: Cory Portillo MD Signed By: <Electronically signed by Cory Portillo MD in OV> 12/04/24 1145 DD/ 1126 TD/TT: 12/04/24 1131 Alteration Tailor Apprentice: us Lela Pagan MD IMG US PROCEDURES Fin al Result * XR Foot 3+ Views Right (11/28/2024 12:05 AM EDT) Anatomical Region Laterality Modality Lower Extremities, Foot Right Radiogra phic Imaging 11/28/2024 12:0 5 AM EDT Narrative 11/28/2024 12:07 AM EDT [address] [address] XRay Report Signed Patient: Ministerio Cevallos MR#: [id number] : 1985 Acct:[id number] Age/Sex: 39 / M ADM Date: 11/27/24 Loc: .ED Attending Dr: Ordering Physician: Generic ED Physician Date of Service: 11/27/24 Procedure(s): XR foot RT min 3V Accession Number(s): [id number] cc: Generic ED Physician; [facility] CLINICAL HISTORY: injury pain swelling 3 [...] 11/28/24 0006 DD/ 0005 TD/TT: 11/28/24 0005 Alteration Tailor Apprentice: Procedure Note Davidinterpreter, Image - 11/28/[address] [address] XRay Report Signed Patient: Jose Antonio CevallosoMR#: M [id number] : 1985Acct:[id number] Age/Sex: 39 / MADM Date: 11/27/24 Loc: HO.ED Attending Dr: Ordering Physician: Generic ED Physician Date of Service: 11/27/24 Procedure(s): XR foot RT min 3V Accession Number(s): [id number] cc: Generic ED Physician; [facility] CLINICAL HISTORY: injury pain swelling 3 [...] 11/28/24 0006 DD/ 0005 TD/TT: 11/28/24 0005 Alteration Tailor Apprentice: [facility] External Provider IMG XR PROCEDURES Edited Result - Final * (ABNORMAL) Lipid Panel, Standard (08/07/2023 7:28 AM EST) Triglycerides 109 <150 mg/dL [facility] Comment:Desirable Triglyceri de: less than 150 mg/dLBorderline High Triglyceride 150-199 mg/dLHigh Triglyceride: 200-499 mg/dLVery High Triglyceride: greater than or equal to 5OO mg/dL Cholesterol 146 <200 mg/dL [facility] Comment:Desirable Cholestero l: less than 200 mg/dLBorderline High Cholesterol: 200-239 mg/dLHigh Cholesterol: greater than 239 mg/dL LDL Cholesterol Calculated 86 <100 mg/dL [facility] Comment:Desirable LDL: less than 100 mg/dLNear Optimal/Above Optimal LDL: 110- 129 mg/dLBorderline High LDL: 130-159 mg/dLHigh LDL: 160-189 mg/dLVery High LDL: greater than or equal to 190 mg/dL HDL Cholesterol 39(L) >40 mg/dL [facility] Comment:Desirable HDL: great er than 40 mg/dL Note: This HDL assay may give artificially low results in patients with liver disease. Blood Venous blood specimen / Unknown 08/07/2023 7:28 AM EST 08/07/2023 7:28 AM EST Stacey JORDANP LAB BLOOD ORDERABLES Final Res ult Performing Organization Address City/[facility]/ZIP Co de Phone Number [facility] [address] [place] [phone] [phone] * Hepatitis C Antibody with Reflex to HCV, RNA, Quantitative, Real-Time PCR (01/04/2023 11:07 AM EDT) Hepatitis C Antibody NON-REACT RAMESH NON-REACT RAMESH [facility] [employer] Index 0.13 <1.00 [facility] [employer] Comment: HCV antibody was non-reactive. There is no laboratory evidence of HCV infection. In most cases, no further action is required. However, if recent HCV exposure is suspected, a test for HCV RNA (test code 47191) is suggested. For additional information please refer to http://education.[employer]/faq/MKL22r2 (This link is being provided for informational/ educational purposes only.) Blood Venous blood specimen / Unknown 01/04/2023 11:07 AM EDT 01/04/2023 11:07 AM EDT Narrative [facility] - 01/08/2023 6:43 PM EDT FASTING:YES FASTING: YES us Lela Pagan MD LAB BLOOD ORDERABLES Final Result [facility] [address], [place] [address] [facility] [employer] [address] [place] [address] * HIV-1/2 Antigen and Antibodies, Fourth Generation, with Reflexes (01/04/2023 11:07 AM EDT) HIV Antigen/Antibody, 4th Generation NON-REAC TIVE NON-REAC TIVE [facility] [employer] Comment: HIV-1 antigen and HIV-1/HIV-2 antibodies were not detected. There is no laboratory evidence of HIV infection. PLEASE NOTE: This information has been disclosed to you from records whose confidentiality may be protected by state law. If your state requires such protection, then the state law prohibits you from making any further disclosure of the information without the specific written consent of the person to whom it pertains, or as otherwise permitted by law. A general authorization for the release of medical or other information is NOT sufficient for this purpose. For additional information please refer to http://education.[employer]/faq/KCC957 (This link is being provided for informational/ educational purposes only.) The performance of this assay has not been clinically validated in patients less than 2 years old. Blood Venous blood specimen / Unknown 01/04/2023 11:07 AM EDT 01/04/2023 11:07 AM EDT Narrative [facility] - 01/08/2023 6:43 PM EDT FASTING:YES FASTING: YES Lela Pagan MD LAB BLOOD ORDERABLES Final Result [facility] [address], [facility] [address] [facility] [address] [place] [address] from Last 3 Months or Most Recently Relevant to Health Maintenance Insurance [facility] C3 Care Teams Animal Geneticist Relationship Specialty Start Date End Date Stacey Pond FNP [address] [place] [address] PCP - General Family Medicine 02/04/22
[2025-02-23 07:37] LABS: MANUAL DIFF FLAG NO
[2025-02-23 07:42] LABS: Hematocrit 40.2 % (42.0-52.0); Hemoglobin 13.9 g/dl (14.0-18.0); Imm Gran Abs Auto 0.02 X10*3/uL (0.00-0.03); Imm Gran Pct Auto 0.3 % (0.0-0.4); Lymphocytes Absolute Auto 1.8 X10*3/uL (1.2-4.9); Mean Corpuscular HGB Conc 34.6 g/dl (31.0-36.0); Mean Corpuscular Hemoglobin 30.7 pg (27.0-33.0); Mean Corpuscular Volume 88.7 fL (80.0-98.0); NRBC Abs Auto 0.000 X10*3/uL (0.0-0.012); NRBC Pct Auto 0.0 /100WBC (0.0-0.2); Platelet Count 238 X10*3/uL (160-400); Red Blood Count 4.53 X10*6/uL (4.60-5.80); White Blood Count 7.9 X10*3/uL (4.8-10.8)
[2025-02-23 07:49] LABS: Appearance Urine Clear; Glucose Urine UA Negative (Negative); PH 6.0 (5.0-9.0); Specific Gravity - Urine 1.020 (1.005-1.025); UMIC TRIGGER UACC YES
[2025-02-23 07:49] LABS: Cannabinoid Screen Urine POSITIVE (Not Detect)
[2025-02-23 07:52] LABS: Anion Gap 12 (12-20); Blood Urea Nitrogen 11 mg/dL (9-16); Calcium 9.2 mg/dL (8.4-10.2); Carbon Dioxide 25 mmol/L (22-29); Chloride 104 mmol/L (96-108); Creatinine Clr Calc Pharmacy 105.6; Estimated Glomerular Filt Rate > 60; Potassium 4.1 mmol/L (3.3-5.1); Sodium 137 mmol/L (135-145)
[2025-02-23 07:54] LABS: UACC Culture Trigger YES
--- NOTE | 2025-02-23 08:30 | ED_ITS ---
HPI - General Adult General Chief complaint: General Medical Stated complaint: sore throat, cough Time Seen by Provider: 02/23/25 07:56 Related Data Home Medications ?Medication ?Instructions ?Recorded ?Confirmed cetirizine 10 mg tablet 10 mg PO DAILY PRN Allergy S ymptoms 08/09/23 08/09/23 diphenhydramine HCl 25 mg tablet 25 mg PO BEDTIME PRN Itching 08/09/23 08/09/23 fluticasone propionate 50 1 - 2 spray intranasal DAILY PRN 08/09/23 08/09/23 mcg/actuation nasal allergies spray,suspension meloxicam 7.5 mg tablet 7.5 - 15 mg PO DAILY PRN misty n 08/09/23 08/09/23 Previous Rx's ?Medication ?Instructions ?Recorded ProAir HFA 90 mcg/actuation 1 inh inhalation QID PRN 0 09/12/21 aerosol inhaler (albuterol sulfate) bronchospasm 30 da ys #8.5 grams ibuprofen 600 mg tablet 600 mg PO Q6H PRN for pain # 30 tabs 09/12/21 simethicone 180 mg capsule (Gas 180 mg PO BID PRN abdo brianne 10/01/21 Relief (simethicone)) distention 30 days #60 caps umeclidinium 62.5 mcg-vilanterol 1 inh inhalation FAWN Y 30 days #60 10/01/21 25 mcg/actuation powdr for ea inhalation (Anoro Ellipta) methylcellulose (laxative) 500 mg 500 mg PO TID #90 ta bs 10/30/21 tablet (Citrucel) Allergies Allergy/AdvReac Type Severity Reaction Status Date / Time No Known Allergies Allergy Verified 02/23/25 06:39 [facility] Past Medical History Medical History Abdominal gas pain Bloody stools Encounter for physical examination Cocaine use Chest wall pain Mild persistent asthma Screening for STD (sexually transmitted disease) Polyuria Allergic rhinitis Primary insomnia Lumbar spondylosis Surgical History Hx of colonoscopy History of esophagogastroduodenoscopy (EGD) Family History Family History Father No problems noted. Mother Hypertension Brother No problems noted. Maternal Grandmother Hypertension Diabetes Maternal Grandfather CVD (cardiovascular disease) Paternal Grandmother No problems noted. Paternal Grandfather No problems noted. Social History Social History Housing: Apartment Patient Tobacco Use Status: Current everyday Tobacco user Tobacco use type: Cigarette Cigarettes Per Day: 2 e-Cigarette/Vaping Use: Never Used Second Hand Smoke Exposure: No Substance Use Type: Marijuana Advance Directives: No Advance Directives Information Provided: Yes service: No Current occupational status: unemployed and disabled Physical Exam ED Vital Signs: Vital Signs - 24 hr 02/23/25 06:34 Temperature 98.6 F Pulse Rate 83 Respiratory Rate 16 Blood Pressure 133/80 Pulse Oximetry 98 Oxygen Delivery Method Room Air BMI result Body Mass Index 27.4 Medical Decision Making Lab Data 02/23/25 07:28 02/23/25 07:28 Labs: Lab Results 02/23/25 02/23/25 Range/Units 07:28 07:29 WBC 7.9 (4.8-10.8) X10*3/uL RBC 4.53 L (4.60-5.80) X10*6/uL Hgb 13.9 L (14.0-18.0) g/dl Hct 40.2 L (42.0-52.0) % MCV 88.7 (80.0-98.0) fL MCH 30.7 (27.0-33.0) pg MCHC 34.6 (31.0-36.0) g/dl RDW 12.1 (11.0-16.0) % Plt Count 238 (160-400) X10*3/uL MPV 8.8 L (9.4-12.4) fL Immature Gran % (Auto) 0.3 (0.0-0.4) % Neut % (Auto) 68.8 (45-73) % Lymph % (Auto) 23.3 (20-40) % Jasper % (Auto) 4.2 (2-11) % Eos % (Auto) 2.8 (0-4) % Baso % (Auto) 0.6 (0-2) % Lymph # (Auto) 1.8 (1.2-4.9) X10*3/uL Jasper # (Auto) 0.3 (0.1-1.2) X10*3/uL Eos # (Auto) 0.2 (0.0-0.4) X10*3/uL Baso # (Auto) 0.1 (0.0-0.2) X10*3/uL Abs Immat Gran (auto) 0.02 (0.00-0.03) X10*3/uL Absolute Neuts (auto) 5.4 (2.0-8.3) x10*3/uL Absolute Nucleated RBC 0.000 (0.0-0.012) X10*3/uL Nucleated RBC % (auto) 0.0 (0.0-0.2) /100WBC Sodium 137 (135-145) mmol/L Potassium 4.1 (3.3-5.1) mmol/L Chloride 104 (96-108) mmol/L Carbon Dioxide 25 (22-29) mmol/L Anion Gap 12 (12-20) BUN 11 (9-16) mg/dL Creatinine 0.87 (0.5-1.4) mg/dL Estim Creat Clear Calc 105.6 Estimated GFR > 60 Random Glucose 110 (60-115) mg/dL Calcium 9.2 D (8.4-10.2) mg/dL Urine Color Yellow Urine Appearance Clear Urine pH 6.0 (5.0-9.0) Ur Specific [place] 1.020 (1.005-1.025) Urine Protein Negative (Neg-Trace) mg/dL Urine Glucose (UA) Negative (Negative) mg/dL Urine Ketones Trace (Negative) mg/dL Urine Blood Negative (Negative) Urine Nitrite Negative (Negative) Ur Leukocyte Esterase Small (1+) H (Negative) Urine RBC 0-2 (0-2) /HPF Urine WBC 6-10 H (0-5) /HPF Ur Squamous Epith Cells 0-2 (0-2) /HPF Urine Bacteria None Seen (None Seen) Hyaline Casts 0-2 (0-2) /LPF Urine Opiates Screen POSITIVE H (Not Detect) Ur Buprenorphine Scrn Not Detected (Not Detect) ng/mL Ur Oxycodone Screen Not Detected (Not Detect) ng/mL Urine Methadone Screen Positive H (Not Detect) ng/mL Urine Fentanyl Screen POSITIVE H (Not Detect) Ur Barbiturates Screen Not Detected (Not Detect) Ur Phencyclidine Scrn Not Detected (Not Detect) Ur Amphetamines Screen Not Detected (Not Detect) U Benzodiazepines Scrn Not Detected (Not Detect) Urine Cocaine Screen POSITIVE H (Not Detect) U Marijuana (THC) Screen POSITIVE H (Not Detect) Discharge Plan Discharge Patient Disposition: Left Without Being Seen Interventions: LWBS Worksheet Last Done: 02/23/25 09:48 Discharge Date/Time: 02/23/25 09:48
--- NOTE | 2025-02-23 08:51 | PC.NURSE ---
this nurse went to go in to see the patient, pt was not in room as he was approx 15 minutes ago. bathroom is currently empty, will check other areas to see if he has left.
--- NOTE | 2025-02-23 09:16 | PC.NURSE ---
provider was notified pt was unable to be located, again, bathrooms checked and they were empty.
== END 2025-02-23 09:48 | disposition left against medical advice (07) ==
PROVIDERS: Emergency Medicine Emergency Medical Services; Emergency Provider Emergency Medicine; PCP Registered Nurse
DX: R05.9 Cough, unspecified (principal); J02.9 Acute pharyngitis, unspecified; Z53.21 Procedure and treatment not carried out due to patient leaving prior to being seen by health care provider
CPT/HCPCS: 36415; 80048; 80307; 81001; 85025; 87086; 99281; 99282